=== PATIENT | male | born 1950 | race Caucasian/White ===

== ENCOUNTER 2017-05-20 07:14 | Outpatient (CLI) | payer MEDICARE ==
[~2017-05-20] VITALS: Ht 182.9 cm; Wt 83.9 kg
[~2017-05-20 07:14] MED LIST: ALLE180T33 PO; ASPI1TAB PO; CENTTAB PO; GINK40TA3 PO; LOSA50TA20 PO; POTA75TA2 PO; POTA80TA PO; SLOWTAB2 PO; VITA500C24 PO
[2017-05-20] MEDS ORDERED: LIDOCAINE 2% INJ 100 MG/5 ML SDV (FOR ANES.) As Ordered ONE (08:48)
[2017-05-20] MEDS ORDERED: PROPOFOL 200 MG/20 ML VIAL As Ordered ONE (08:48)
[2017-05-20 09:25] VITALS: BP 126/78
--- NOTE | 2017-05-20 09:31 | ROOR ---
Patient Name: Grayson Pickens Procedure Date: 05/20/2017 8:40 AM Date of : 1950 Age: 66 Room: [facility] Gender: Male Note Status: Finalized Procedure: Colonoscopy Indications: Screening for colorectal malignant neoplasm Providers: Froylan Holt MD Referring MD: Lucian Mars MD Requesting Provider: Medicines: Monitored Anesthesia Care Complications: No immediate complications. Procedure: Pre-Anesthesia Assessment: - Prior to the procedure, a History and Physical was performed, and patient medications and allergies were reviewed. The patient is competent. The risks and benefits of the procedure and the sedation options and risks were discussed with the patient. All questions were answered and informed consent was obtained. Patient identification and proposed procedure were verified by the physician, the nurse and the vendor analyst in the procedure room. Mental Status Examination: alert and oriented. Airway Examination: normal oropharyngeal airway and neck mobility. Respiratory Examination: clear to auscultation. CV Examination: normal. Prophylactic Antibiotics: The patient does not require prophylactic antibiotics. Prior Anticoagulants: The patient has taken no previous anticoagulant or antiplatelet agents. ASA Grade Assessment: III - A patient with severe systemic disease. After reviewing the risks and benefits, the patient was deemed in satisfactory condition to undergo the procedure. The anesthesia plan was to use monitored anesthesia care (MAC). Immediately prior to administration of medications, the patient was re-assessed for adequacy to receive sedatives. The heart rate, respiratory rate, oxygen saturations, blood pressure, adequacy of pulmonary ventilation, and response to care were monitored throughout the procedure. The physical status of the patient was re-assessed after the procedure. The Colonoscope was introduced through the anus and advanced to the terminal ileum, with identification of the appendiceal orifice and IC valve. The colonoscopy was performed without difficulty. The patient tolerated the procedure well. The quality of the bowel preparation was good. The terminal ileum, ileocecal valve, appendiceal orifice, and rectum were photographed. The quality of the bowel preparation was good. The terminal ileum, ileocecal valve, appendiceal orifice, and rectum were photographed. Scope insertion time was 5 minutes. Scope withdrawal time was 10 minutes. The total duration of the procedure was 18 minutes. Findings: The perianal and digital rectal examinations were normal. The terminal ileum contained a few small diverticula. Two sessile polyps were found in the rectum. The polyps were 2 to 3 mm in size. These polyps were removed with a jumbo cold forceps. Resection and retrieval were complete. Verification of patient identification for the specimen was done by the physician and nurse using the patient's name, date and medical record number. Estimated blood loss was minimal. Multiple small and large-mouthed diverticula were found from sigmoid to cecum. There was no evidence of diverticular bleeding. Non-bleeding external and internal hemorrhoids were found during retroflexion. The hemorrhoids were large. Impression: - Ileal diverticula. - Two 2 to 3 mm polyps in the rectum, removed with a jumbo cold forceps. Resected and retrieved. - Severe diverticulosis from sigmoid to cecum. There was no evidence of diverticular bleeding. - Non-bleeding external and internal hemorrhoids. Recommendation: - Patient has a contact number available for emergencies. The signs and symptoms of potential delayed complications were discussed with the patient. Return to normal activities tomorrow. Written discharge instructions were provided to the patient. - High fiber diet. - Continue present medications. - Preparation H ointment: Apply externally daily for 7 days. - Await pathology results. - Repeat colonoscopy in 5 years for surveillance based on pathology results. - Return to GI office as previously scheduled on 05/26/2017 at 10:00 AM. - Return to primary care physician. Froylan Holt MD Froylan Holt MD 05/20/2017 9:31:48 AM This report has been signed electronically. Number of Addenda: 0 Note Initiated On: 05/20/2017 8:40 AM Estimated Blood Loss: Estimated blood loss was minimal.
== END 2017-05-20 09:40 | disposition home or self-care (01) ==
LOC: M OPP 07:14
PROVIDERS: ATTEND Internal Medicine Gastroenterology
DX: Z12.11 Encounter for screening for malignant neoplasm of colon (principal); K63.5 Polyp of colon; K57.30 Diverticulosis of large intestine without perforation or abscess without bleeding; K64.8 Other hemorrhoids; K64.4 Residual hemorrhoidal skin tags; I10 Essential (primary) hypertension; M54.31 Sciatica, right side; Z85.828 Personal history of other malignant neoplasm of skin; Z79.82 Long term (current) use of aspirin; Z79.899 Other long term (current) drug therapy

== ENCOUNTER → 2017-07-04 | Outpatient (REF) | payer MEDICARE ==
[2017-07-04 17:34] LABS: ANION GAP 13 MEQ/L (8-16); BLOOD UREA NITROGEN 10 MG/DL (7-18); CARBON DIOXIDE LEVEL 26 MEQ/L (21-32); CHLORIDE LEVEL 102 MEQ/L (98-107); CREATININE FOR GFR 0.94 MG/DL (0.70-1.30); GLOMERULAR FILTRATION RATE > 60.0 (>49); GLUCOSE, FASTING 76 MG/DL (80-110); MAGNESIUM LEVEL 1.9 MG/DL (1.8-2.4); POTASSIUM SERUM 4.2 MEQ/L (3.5-5.1); SODIUM LEVEL 141 MEQ/L (136-145)
[2017-07-04 17:37] LABS: FOLATE 13.6 NG/ML; VITAMIN B12 LEVEL 314 PG/ML
== END ==
LOC: M SFHCCLAY 13:23
PROVIDERS: ATTEND Family Medicine
DX: G58.7 Mononeuritis multiplex (principal)

== ENCOUNTER 2019-03-27 17:27 | Emergency (ER) | payer MEDICARE ==
[~2019-03-27] VITALS: Ht 182.9 cm; Wt 84.1 kg
[~2019-03-27 17:27] MED LIST changes: -ASPI1TAB PO; +ASPI81TA26 PO; -LOSA50TA20 PO; +LOSA50TA88 PO
[2019-03-27] MEDS ORDERED: NS 1,000 ML IV SCH (18:16)
[2019-03-27 18:24] LABS: HEMATOCRIT 44.1 % (42.0-52.0); HEMOGLOBIN 15.3 g/dl (13.5-17.5); MEAN CORPUSCULAR HEMOGLOBIN 34.5 pg (27.0-33.0); MEAN CORPUSCULAR HGB CONC 34.7 g/dl (32.0-36.5); MEAN CORPUSCULAR VOLUME 99.5 fl (80.0-96.0); PLATELET COUNT, AUTOMATED 198 10^3/uL (150-450); RED BLOOD COUNT 4.43 10^6/uL (4.30-6.10); WHITE BLOOD COUNT 5.5 10^3/uL (4.0-10.0)
[2019-03-27 18:59] LABS: AMPHETAMINES LEVEL URINE NEGATIVE (NEGATIVE); BARBITURATES URINE NEGATIVE (NEGATIVE); BENZODIAZEPINES URINE NEGATIVE (NEGATIVE); CANNABINOIDS URINE NEGATIVE (NEGATIVE); COCAINE METABOLITE URINE NEGATIVE (NEGATIVE); METHADONE URINE NEGATIVE (NEGATIVE); OPIATES URINE NEGATIVE (NEGATIVE); PHENCYCLIDINE URINE NEGATIVE (NEGATIVE)
[2019-03-27 19:07] LABS: ACETAMINOPHEN LEVEL < 2.0 UG/ML (10.0-30.0); ALBUMIN 3.9 GM/DL (3.2-5.2); ALT/SGPT 23 U/L (12-78); BILIRUBIN,DIRECT 0.2 MG/DL (0.0-0.2); BILIRUBIN,TOTAL 0.5 MG/DL (0.2-1.0); BLOOD UREA NITROGEN 8 MG/DL (7-18); CALCIUM LEVEL 8.4 MG/DL (8.8-10.2); CARBON DIOXIDE LEVEL 30 MEQ/L (21-32); CHLORIDE LEVEL 107 MEQ/L (98-107); ETHYL ALCOHOL (ETHANOL) 0.348 % (0.000-0.010); GLOMERULAR FILTRATION RATE > 60.0 (>49); GLUCOSE, FASTING 98 MG/DL (70-100); POTASSIUM SERUM 3.4 MEQ/L (3.5-5.1); SALICYLATE LEVEL < 1.7 MG/DL (5.0-30.0); SODIUM LEVEL 144 MEQ/L (136-145); TOTAL PROTEIN 6.7 GM/DL (6.4-8.2)
[2019-03-27 22:03] VITALS: BP 123/77
== END 2019-03-27 22:12 | disposition home or self-care (01) ==
LOC: EDBD 17:27 → M ED 17:27
DX: F10.120 Alcohol abuse with intoxication, uncomplicated (principal); R41.82 Altered mental status, unspecified; I10 Essential (primary) hypertension; J30.89 Other allergic rhinitis; M54.30 Sciatica, unspecified side; Z85.828 Personal history of other malignant neoplasm of skin; Z79.899 Other long term (current) drug therapy; Z79.82 Long term (current) use of aspirin
CPT/HCPCS: 80048; 80076; 80307; 84443; 85027; 93041; 94760; 96360; 96361; 99285; G0480

== ENCOUNTER → 2019-06-01 | Outpatient (REF) | payer MEDICARE ==
[2019-06-01 16:40] LABS: ALBUMIN 4.2 GM/DL (3.2-5.2); ALT/SGPT 18 U/L (12-78); BILIRUBIN,TOTAL 0.8 MG/DL (0.2-1.0); BLOOD UREA NITROGEN 8 MG/DL (7-18); CALCIUM LEVEL 9.1 MG/DL (8.8-10.2); CARBON DIOXIDE LEVEL 29 MEQ/L (21-32); CHLORIDE LEVEL 106 MEQ/L (98-107); CHOLESTEROL LEVEL 204 MG/DL (<200); CHOLESTEROL RISK RATIO 2.956 (<5); CREATININE FOR GFR 1.06 MG/DL (0.70-1.30); GLOMERULAR FILTRATION RATE > 60.0 (>49); GLUCOSE, FASTING 88 MG/DL (70-100); HDL CHOLESTEROL 69 MG/DL (>40); LDL CHOLESTEROL 97 MG/DL (<100); NON-HDL-C 135 MG/DL; POTASSIUM SERUM 4.2 MEQ/L (3.5-5.1); SODIUM LEVEL 144 MEQ/L (136-145); TOTAL PROTEIN 7.3 GM/DL (6.4-8.2); TRIGLYCERIDES LEVEL 192 MG/DL (<150)
== END ==
LOC: M SFHCCLAY 12:13
PROVIDERS: ATTEND Family Medicine
DX: I10 Essential (primary) hypertension (principal); E78.00 Pure hypercholesterolemia, unspecified; Z12.5 Encounter for screening for malignant neoplasm of prostate
CPT/HCPCS: 80053; 80061; 90682; G0008; G0103

== ENCOUNTER → 2020-06-05 | Outpatient (REF) | payer MEDICARE ==
[2020-06-06 12:36] LABS: BLOOD UREA NITROGEN 16 MG/DL (7-18); CALCIUM LEVEL 9.2 MG/DL (8.8-10.2); CARBON DIOXIDE LEVEL 28 MEQ/L (21-32); CHLORIDE LEVEL 104 MEQ/L (98-107); CREATININE FOR GFR 0.88 MG/DL (0.70-1.30); GLOMERULAR FILTRATION RATE > 60.0 (>49); GLUCOSE, FASTING 94 MG/DL (70-100); POTASSIUM SERUM 4.6 MEQ/L (3.5-5.1); SODIUM LEVEL 142 MEQ/L (136-145)
== END ==
LOC: M SFHCCLAY 14:48
PROVIDERS: ATTEND Family Medicine
DX: I11.9 Hypertensive heart disease without heart failure (principal); R97.20 Elevated prostate specific antigen [PSA]; Z23 Encounter for immunization
CPT/HCPCS: 80048; 90682; G0008; G0103; G0463

== ENCOUNTER 2020-07-24 15:56 | Emergency (ER) | payer MEDICARE ==
[~2020-07-24] VITALS: Ht 182.9 cm; Wt 77.3 kg
[2020-07-24] MEDS ORDERED: NS 500 ML IV ONE (16:45)
--- NOTE | 2020-07-24 16:49 | REP ---
INDICATION: weakness. COMPARISON: Comparison head CT study February 13, 2016.. TECHNIQUE: Helical scanning is acquired. 5 mm axial images were reformatted. Coronal MPR images were generated. FINDINGS: Bone window settings demonstrate an intact bony calvarium. There is no evidence of skull fracture or incidental bony calvarial lesion. The visualized paranasal sinuses appear clear. No intraorbital abnormality is seen. On soft tissue window setting images; the lateral, third, and fourth ventricles are normal in size and position. Chou-white differentiation pattern is normal above and below the tentorium. There are is no evidence of intracranial hemorrhage. No mass, edema, infarction, or midline shift is seen. No extra-axial fluid collection is appreciated. There is mild generalized volume loss. No change from comparison study. IMPRESSION: Mild generalized volume loss. Otherwise unremarkable head CT. No acute intracranial abnormality.. <Electronically signed by Ulises Levi > 07/24/20 [id number]
[2020-07-24 17:35] LABS: BASO % 0.3 % (0.0-1.0); HEMATOCRIT 38.4 % (42.0-52.0); HEMOGLOBIN 12.8 g/dl (13.5-17.5); LYMPH # 0.5 10^3/uL (1.5-5.0); MEAN CORPUSCULAR HEMOGLOBIN 36.1 pg (27.0-33.0); MEAN CORPUSCULAR HGB CONC 33.3 g/dl (32.0-36.5); MEAN CORPUSCULAR VOLUME 108.2 fl (80.0-96.0); MONO # 0.7 10^3/uL (0.0-0.8); MONO % 10.9 % (0.0-5.0); NEUTROPHILS % 80.5 % (36.0-66.0); PLATELET COUNT, AUTOMATED 117 10^3/uL (150-450); RED BLOOD COUNT 3.55 10^6/uL (4.30-6.10); WHITE BLOOD COUNT 6.2 10^3/uL (4.0-10.0)
--- NOTE | 2020-07-24 17:50 | REP ---
INDICATION: weakness. COMPARISON: Comparison chest x-ray February 13, 2016. Also reviewed is a chest x-ray from January 15, 2016. TECHNIQUE: Two views.. FINDINGS: The lungs are well inflated and free of infiltrate. The pleural angles are sharp. The heart size is normal. Pulmonary vasculature is not increased. No significant bony abnormality is seen. There is a hiatal hernia noted behind the heart mild to moderate in size. IMPRESSION: Hiatal hernia, otherwise no active disease.. <Electronically signed by Ulises Levi > 07/24/20 [id number]
[2020-07-24 18:07] LABS: ALBUMIN 3.8 GM/DL (3.2-5.2); ALT/SGPT 53 U/L (12-78); BILIRUBIN,DIRECT 0.9 MG/DL (0.0-0.2); BILIRUBIN,TOTAL 2.1 MG/DL (0.2-1.0); BLOOD UREA NITROGEN 15 MG/DL (7-18); CALCIUM LEVEL 8.8 MG/DL (8.8-10.2); CARBON DIOXIDE LEVEL 30 MEQ/L (21-32); CHLORIDE LEVEL 99 MEQ/L (98-107); CK-MB VALUE MASS 4.4 NG/ML (<3.6); CPK CREATINE PHOSPHOKINASE 195 U/L (39-308); CREATININE FOR GFR 1.29 MG/DL (0.70-1.30); GLOMERULAR FILTRATION RATE 58.8 (>49); GLUCOSE, FASTING 81 MG/DL (70-100); LIPASE 65 U/L (73-393); MB/CK RELATIVE INDEX 2.26 (< OR =4); POTASSIUM SERUM 3.6 MEQ/L (3.5-5.1); SODIUM LEVEL 139 MEQ/L (136-145); TOTAL PROTEIN 6.9 GM/DL (6.4-8.2); TROPONIN I < 0.02 NG/ML (< 0.10)
[2020-07-24 18:30] VITALS: BP 168/89
--- NOTE | 2020-07-25 07:17 | ECGEPIP ---
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
== END 2020-07-24 18:57 | disposition home or self-care (01) ==
LOC: M ED 15:56
DX: R53.83 Other fatigue (principal); R11.10 Vomiting, unspecified; K44.9 Diaphragmatic hernia without obstruction or gangrene; I10 Essential (primary) hypertension; M54.30 Sciatica, unspecified side; Z85.828 Personal history of other malignant neoplasm of skin; Z79.82 Long term (current) use of aspirin; Z79.899 Other long term (current) drug therapy
CPT/HCPCS: 70450; 71046; 80048; 80076; 82550; 82553; 82948; 83690; 84484; 85025; 93005; 93041; 96360; 99284; G0463

== ENCOUNTER → 2020-10-21 | Outpatient (REF) | payer MEDICARE | LOC: M LAB REF 16:16 | PROVIDERS: ATTEND Surgery | DX: M86.171 Other acute osteomyelitis, right ankle and foot (principal); L97.514 Non-pressure chronic ulcer of other part of right foot with necrosis of bone; T14.8XXA Other injury of unspecified body region, initial encounter | CPT/HCPCS: 11042; 11043; 11044; 87070; 87077; 87186; 88304; G0463 ==

== ENCOUNTER → 2021-07-20 | Outpatient (REF) | payer MEDICARE ==
[~2021-07-20] MED LIST changes: +LOSA50TA28 PO; -LOSA50TA88 PO
[2021-07-20 16:26] LABS: BASO # 0.2 10^3/uL (0.0-0.2); BASO % 1.9 % (0.0-1.0); EOS # 0.4 10^3/uL (0.0-0.5); HEMATOCRIT 37.3 % (42.0-52.0); HEMOGLOBIN 12.4 g/dl (13.5-17.5); LYMPH # 3.4 10^3/uL (1.5-5.0); LYMPH % 35.3 % (24.0-44.0); MEAN CORPUSCULAR HEMOGLOBIN 32.9 pg (27.0-33.0); MEAN CORPUSCULAR HGB CONC 33.2 g/dl (32.0-36.5); MEAN CORPUSCULAR VOLUME 98.9 fl (80.0-96.0); MONO % 10.6 % (2.0-8.0); NEUTROPHILS # 4.6 10^3/uL (1.5-8.5); PLATELET COUNT, AUTOMATED 325 10^3/uL (150-450); RED BLOOD COUNT 3.77 10^6/uL (4.30-6.10); WHITE BLOOD COUNT 9.7 10^3/uL (4.0-10.0)
[2021-07-20 19:42] LABS: ALBUMIN 2.5 GM/DL (3.2-5.2); ALT/SGPT 16 U/L (12-78); BILIRUBIN,TOTAL 0.6 MG/DL (0.2-1.0); BLOOD UREA NITROGEN 7 MG/DL (7-18); CALCIUM LEVEL 8.3 MG/DL (8.8-10.2); CARBON DIOXIDE LEVEL 31 MEQ/L (21-32); CHLORIDE LEVEL 101 MEQ/L (98-107); CHOLESTEROL LEVEL 130 MG/DL (<200); CREATININE FOR GFR 0.99 MG/DL (0.70-1.30); GLOMERULAR FILTRATION RATE > 60.0 (>42); GLUCOSE, FASTING 80 MG/DL (70-100); HDL CHOLESTEROL 57 MG/DL (>40); LDL CHOLESTEROL 52 MG/DL (<100); NON-HDL-C 73 MG/DL; POTASSIUM SERUM 3.4 MEQ/L (3.5-5.1); SODIUM LEVEL 142 MEQ/L (136-145); TOTAL 25(OH) VITAMIN D 15.5 NG/ML (30.0-100.0); TOTAL PROTEIN 6.8 GM/DL (6.4-8.2); TRIGLYCERIDES LEVEL 104 MG/DL (<150)
== END ==
LOC: M SFHCCAPE 10:58
PROVIDERS: ATTEND Physician Assistant
DX: I10 Essential (primary) hypertension (principal); Z12.5 Encounter for screening for malignant neoplasm of prostate; Z79.899 Other long term (current) drug therapy
CPT/HCPCS: 36415; 80053; 80061; 82306; 84443; 85025; G0103

== ENCOUNTER 2021-08-29 19:28 | Inpatient (IN) | payer MEDICARE ==
[~2021-08-29] VITALS: Ht 182.9 cm; Wt 71.0 kg
[2021-08-29 20:27] LABS: BASO # 0.1 10^3/uL (0.0-0.2); BASO % 0.5 % (0.0-1.0); EOS % 0.1 % (0.0-3.0); HEMATOCRIT 29.2 % (42.0-52.0); HEMOGLOBIN 10.2 g/dl (13.5-17.5); LYMPH # 0.7 10^3/uL (1.5-5.0); LYMPH % 5.7 % (24.0-44.0); MEAN CORPUSCULAR HEMOGLOBIN 31.8 pg (27.0-33.0); MEAN CORPUSCULAR HGB CONC 34.9 g/dl (32.0-36.5); MONO # 1.2 10^3/uL (0.0-0.8); MONO % 9.4 % (2.0-8.0); NEUTROPHILS # 10.6 10^3/uL (1.5-8.5); NEUTROPHILS % 83.9 % (36.0-66.0); PLATELET COUNT, AUTOMATED 241 10^3/uL (150-450); RED BLOOD COUNT 3.21 10^6/uL (4.30-6.10); WHITE BLOOD COUNT 12.6 10^3/uL (4.0-10.0)
[2021-08-29 20:51] LABS: BLOOD UREA NITROGEN 11 MG/DL (7-18); CALCIUM LEVEL 7.8 MG/DL (8.8-10.2); CARBON DIOXIDE LEVEL 34 MEQ/L (21-32); CHLORIDE LEVEL 94 MEQ/L (98-107); CREATININE FOR GFR 1.05 MG/DL (0.70-1.30); GLOMERULAR FILTRATION RATE > 60.0 (>42); GLUCOSE, FASTING 101 MG/DL (70-100); MAGNESIUM LEVEL 1.1 MG/DL (1.8-2.4); POTASSIUM SERUM 2.9 MEQ/L (3.5-5.1); SODIUM LEVEL 135 MEQ/L (136-145)
[2021-08-29] MEDS ORDERED: ACETAMINOPHEN TAB 650MG DOSE (2X325MG) PO ONE (20:55)
[2021-08-29] MEDS ORDERED: POTASSIUM CHLORIDE 10MEQ SR TABLET PO ONE (20:55)
[2021-08-29] MEDS ORDERED: OXAZEPAM 15 MG CAP PO ONE (20:55)
[2021-08-29] MEDS ORDERED: MAG SULF 1GM/100ML (MAG RUN) 1 GM in IV 1 EA IV ONE (20:55)
[2021-08-29] MEDS ORDERED: NS 1,000 ML IV ONE ×2 (20:55→23:45)
[2021-08-29] MEDS ORDERED: cefTRIAXone SOD 1 GM in D5W MINI-BAG PLUS 50 ML IV ONE (23:10)
[2021-08-29] MEDS ORDERED: GINK60CA8 PO (23:40)
[2021-08-29] MEDS ORDERED: CENT1TAB PO (23:40)
[2021-08-29] MEDS ORDERED: MAGN200T10 PO (23:40)
[2021-08-29] MEDS ORDERED: MED REC COMMENT (23:42)
[2021-08-29] MEDS ORDERED: HOME MED LIST COMPLETE! XX SCH (23:45)
[2021-08-29] MEDS: NS 1,000 ML IV SCH (23:45)
[2021-08-30] MEDS ORDERED: THIAMINE 200MG 2ML VIAL IM ONE (00:30)
[2021-08-30] MEDS: NS 1,000 ML IV SCH ×3 (00:42→19:41)
[2021-08-30] MEDS: KCL 10MEQ/100ML SWI (KRUN) 10 MEQ in IV 1 EA IV SCH ×2 (01:00→02:00)
[2021-08-30 01:10] VITALS: BP 143/82
[2021-08-30 04:00] VITALS: BP 134/82
[2021-08-30] MEDS ORDERED: LORazepam 2 MG TAB XX PRN (05:10)
[2021-08-30] MEDS ORDERED: HALOPERIDOL 5MG/ML VIAL (J1630 PER 1) IM ONE (05:15)
[2021-08-30] MEDS ORDERED: diazePAM 10MG/2ML SYRINGE (J3360 PER 5MG) IM ONE (05:15)
[2021-08-30] MEDS: HEPARIN SOD (PORCINE) 5000UNITS/ML 1ML VIAL/SYRINGE SC SCH ×3 (05:44→21:52)
[2021-08-30 07:29] LABS: BLOOD UREA NITROGEN 12 MG/DL (7-18); CALCIUM LEVEL 6.9 MG/DL (8.8-10.2); CARBON DIOXIDE LEVEL 30 MEQ/L (21-32); CHLORIDE LEVEL 102 MEQ/L (98-107); CREATININE FOR GFR 0.86 MG/DL (0.70-1.30); GLOMERULAR FILTRATION RATE > 60.0 (>42); GLUCOSE, FASTING 77 MG/DL (70-100); MAGNESIUM LEVEL 1.4 MG/DL (1.8-2.4); PHOSPHORUS LEVEL 3.5 MG/DL (2.5-4.9); POTASSIUM SERUM 2.9 MEQ/L (3.5-5.1); SODIUM LEVEL 140 MEQ/L (136-145)
[2021-08-30 07:52] VITALS: BP 138/83
[2021-08-30] MEDS: MULTIVITAMINS/MINERALS THERAP 1 TAB PO SCH (09:03)
[2021-08-30] MEDS: FOLIC ACID 1 MG TAB PO SCH (09:03)
[2021-08-30] MEDS: MAG SULF 1GM/100ML (MAG RUN) 1 GM in IV 1 EA IV SCH ×2 (09:03→10:48)
[2021-08-30 16:00] VITALS: BP 126/78
[2021-08-30] MEDS: ACETAMINOPHEN TAB 650MG DOSE (2X325MG) PO PRN (17:25)
[2021-08-30] MEDS ORDERED: LORazepam 2 MG/ML VIAL IV PRN (17:40)
[2021-08-30 20:00] VITALS: BP 133/93
[2021-08-30 22:00] VITALS: BP 133/93
[2021-08-30] MEDS: cefTRIAXone SOD 1 GM in D5W MINI-BAG PLUS 50 ML IV SCH (23:33)
[2021-08-31] VITALS (7 sets, daily range): BP systolic 92–138; BP diastolic 56–91
[2021-08-31] MEDS: NS 1,000 ML IV SCH ×2 (05:42→15:45)
[2021-08-31] MEDS: HEPARIN SOD (PORCINE) 5000UNITS/ML 1ML VIAL/SYRINGE SC SCH ×3 (05:43→21:03)
[2021-08-31] MEDS: FOLIC ACID 1 MG TAB PO SCH (08:50)
[2021-08-31] MEDS: MULTIVITAMINS/MINERALS THERAP 1 TAB PO SCH (08:50)
[2021-08-31 09:24] LABS: BASO # 0.1 10^3/uL (0.0-0.2); EOS # 0.1 10^3/uL (0.0-0.5); EOS % 1.1 % (0.0-3.0); HEMATOCRIT 26.6 % (42.0-52.0); HEMOGLOBIN 8.9 g/dl (13.5-17.5); LYMPH # 1.1 10^3/uL (1.5-5.0); LYMPH % 10.2 % (24.0-44.0); MEAN CORPUSCULAR HEMOGLOBIN 31.6 pg (27.0-33.0); MEAN CORPUSCULAR HGB CONC 33.5 g/dl (32.0-36.5); MEAN CORPUSCULAR VOLUME 94.3 fl (80.0-96.0); MONO # 0.8 10^3/uL (0.0-0.8); MONO % 7.9 % (2.0-8.0); NEUTROPHILS # 8.2 10^3/uL (1.5-8.5); NEUTROPHILS % 79.3 % (36.0-66.0); PLATELET COUNT, AUTOMATED 222 10^3/uL (150-450); RED BLOOD COUNT 2.82 10^6/uL (4.30-6.10); WHITE BLOOD COUNT 10.4 10^3/uL (4.0-10.0)
[2021-08-31 09:56] LABS: BLOOD UREA NITROGEN 10 MG/DL (7-18); CALCIUM LEVEL 7.3 MG/DL (8.8-10.2); CARBON DIOXIDE LEVEL 30 MEQ/L (21-32); CHLORIDE LEVEL 100 MEQ/L (98-107); CREATININE FOR GFR 1.01 MG/DL (0.70-1.30); GLOMERULAR FILTRATION RATE > 60.0 (>42); GLUCOSE, FASTING 133 MG/DL (70-100); POTASSIUM SERUM 3.2 MEQ/L (3.5-5.1); SODIUM LEVEL 135 MEQ/L (136-145)
[2021-08-31] MEDS ORDERED: POTASSIUM CHLORIDE 10MEQ SR TABLET PO ONE (15:40)
[2021-08-31] MEDS: LIDOCAINE 5% (LIDODERM) PATCH TD SCH (18:13)
[2021-08-31] MEDS: **NOTE PATIENT COMMENT** MISC XX SCH (21:02)
[2021-08-31] MEDS: cefTRIAXone SOD 1 GM in D5W MINI-BAG PLUS 50 ML IV SCH (23:30)
[2021-09-01] MEDS: NS 1,000 ML IV SCH ×2 (04:19→12:26)
[2021-09-01] MEDS: HEPARIN SOD (PORCINE) 5000UNITS/ML 1ML VIAL/SYRINGE SC SCH ×3 (05:16→22:03)
[2021-09-01 06:00] VITALS: BP 117/78
[2021-09-01] MEDS ORDERED: POTASSIUM CHLORIDE 10MEQ SR TABLET PO ONE (08:30)
[2021-09-01] MEDS: MULTIVITAMINS/MINERALS THERAP 1 TAB PO SCH (08:44)
[2021-09-01] MEDS: FOLIC ACID 1 MG TAB PO SCH (08:44)
[2021-09-01] MEDS: LIDOCAINE 5% (LIDODERM) PATCH TD SCH (08:45)
[2021-09-01 12:13] LABS: MAGNESIUM LEVEL 1.6 MG/DL (1.8-2.4)
[2021-09-01 12:25] LABS: BLOOD UREA NITROGEN 10 MG/DL (7-18); CALCIUM LEVEL 7.6 MG/DL (8.8-10.2); CARBON DIOXIDE LEVEL 28 MEQ/L (21-32); CHLORIDE LEVEL 102 MEQ/L (98-107); CREATININE FOR GFR 0.96 MG/DL (0.70-1.30); GLOMERULAR FILTRATION RATE > 60.0 (>42); GLUCOSE, FASTING 102 MG/DL (70-100); POTASSIUM SERUM 3.4 MEQ/L (3.5-5.1); SODIUM LEVEL 136 MEQ/L (136-145)
[2021-09-01 12:27] LABS: HEMATOCRIT 25.7 % (42.0-52.0); HEMOGLOBIN 8.6 g/dl (13.5-17.5); MEAN CORPUSCULAR HEMOGLOBIN 31.6 pg (27.0-33.0); MEAN CORPUSCULAR HGB CONC 33.5 g/dl (32.0-36.5); MEAN CORPUSCULAR VOLUME 94.5 fl (80.0-96.0); PLATELET COUNT, AUTOMATED 202 10^3/uL (150-450); RED BLOOD COUNT 2.72 10^6/uL (4.30-6.10); WHITE BLOOD COUNT 7.5 10^3/uL (4.0-10.0)
[2021-09-01] MEDS: MAG SULF 1GM/100ML (MAG RUN) 1 GM in IV 1 EA IV SCH ×2 (13:01→14:31)
[2021-09-01 14:00] VITALS: BP 121/80
[2021-09-01] MEDS: ACETAMINOPHEN TAB 650MG DOSE (2X325MG) PO PRN (20:26)
[2021-09-01 21:07] VITALS: BP 131/87
[2021-09-01] MEDS: **NOTE PATIENT COMMENT** MISC XX SCH (21:21)
[2021-09-01] MEDS: cefTRIAXone SOD 1 GM in D5W MINI-BAG PLUS 50 ML IV SCH (22:03)
[2021-09-02] MEDS: IBUPROFEN 200MG TAB PO PRN ×2 (02:17→22:14)
[2021-09-02] MEDS: NS 1,000 ML IV SCH (02:18)
[2021-09-02] MEDS: HEPARIN SOD (PORCINE) 5000UNITS/ML 1ML VIAL/SYRINGE SC SCH ×3 (05:07→22:13)
[2021-09-02 05:28] VITALS: BP 132/86
[2021-09-02 06:02] LABS: BASO # 0.1 10^3/uL (0.0-0.2); BASO % 0.9 % (0.0-1.0); EOS # 0.2 10^3/uL (0.0-0.5); EOS % 2.4 % (0.0-3.0); HEMATOCRIT 23.1 % (42.0-52.0); HEMOGLOBIN 7.8 g/dl (13.5-17.5); LYMPH # 1.2 10^3/uL (1.5-5.0); LYMPH % 15.3 % (24.0-44.0); MEAN CORPUSCULAR HEMOGLOBIN 31.7 pg (27.0-33.0); MEAN CORPUSCULAR HGB CONC 33.8 g/dl (32.0-36.5); MEAN CORPUSCULAR VOLUME 93.9 fl (80.0-96.0); MONO % 12.3 % (2.0-8.0); NEUTROPHILS # 5.6 10^3/uL (1.5-8.5); NEUTROPHILS % 68.7 % (36.0-66.0); PLATELET COUNT, AUTOMATED 200 10^3/uL (150-450); RED BLOOD COUNT 2.46 10^6/uL (4.30-6.10); WHITE BLOOD COUNT 8.1 10^3/uL (4.0-10.0)
[2021-09-02 06:28] LABS: ALBUMIN 1.6 GM/DL (3.2-5.2); ALT/SGPT 19 U/L (12-78); BILIRUBIN,TOTAL 0.3 MG/DL (0.2-1.0); BLOOD UREA NITROGEN 9 MG/DL (7-18); CALCIUM LEVEL 7.3 MG/DL (8.8-10.2); CARBON DIOXIDE LEVEL 26 MEQ/L (21-32); CHLORIDE LEVEL 106 MEQ/L (98-107); CREATININE FOR GFR 0.89 MG/DL (0.70-1.30); GLOMERULAR FILTRATION RATE > 60.0 (>42); GLUCOSE, FASTING 79 MG/DL (70-100); POTASSIUM SERUM 3.6 MEQ/L (3.5-5.1); SODIUM LEVEL 140 MEQ/L (136-145)
[2021-09-02 08:24] LABS: HEMATOCRIT 23.9 % (42.0-52.0); HEMOGLOBIN 8.2 g/dl (13.5-17.5)
[2021-09-02] MEDS: MULTIVITAMINS/MINERALS THERAP 1 TAB PO SCH (09:28)
[2021-09-02] MEDS: FOLIC ACID 1 MG TAB PO SCH (09:28)
[2021-09-02] MEDS: THIAMINE 100 MG TAB PO SCH (09:28)
[2021-09-02] MEDS: LIDOCAINE 5% (LIDODERM) PATCH TD SCH (09:29)
[2021-09-02 14:00] VITALS: BP 146/86
[2021-09-02] MEDS: **NOTE PATIENT COMMENT** MISC XX SCH (21:00)
[2021-09-02 22:00] VITALS: BP 141/92
[2021-09-02] MEDS: cefTRIAXone SOD 1 GM in D5W MINI-BAG PLUS 50 ML IV SCH (22:13)
[2021-09-03] VITALS (8 sets, daily range): BP systolic 119–142; BP diastolic 80–88
[2021-09-03] MEDS: HEPARIN SOD (PORCINE) 5000UNITS/ML 1ML VIAL/SYRINGE SC SCH (05:44)
[2021-09-03 06:38] LABS: HEMATOCRIT 23.9 % (42.0-52.0); MEAN CORPUSCULAR HEMOGLOBIN 31.4 pg (27.0-33.0); MEAN CORPUSCULAR HGB CONC 33.5 g/dl (32.0-36.5); MEAN CORPUSCULAR VOLUME 93.7 fl (80.0-96.0); PLATELET COUNT, AUTOMATED 226 10^3/uL (150-450); RED BLOOD COUNT 2.55 10^6/uL (4.30-6.10); WHITE BLOOD COUNT 5.9 10^3/uL (4.0-10.0)
[2021-09-03 07:01] LABS: BLOOD UREA NITROGEN 8 MG/DL (7-18); CARBON DIOXIDE LEVEL 30 MEQ/L (21-32); CHLORIDE LEVEL 105 MEQ/L (98-107); CREATININE FOR GFR 0.97 MG/DL (0.70-1.30); GLOMERULAR FILTRATION RATE > 60.0 (>42); GLUCOSE, FASTING 79 MG/DL (70-100); POTASSIUM SERUM 3.7 MEQ/L (3.5-5.1); SODIUM LEVEL 139 MEQ/L (136-145)
[2021-09-03] MEDS: CEFDINIR 300 MG CAP (OMNICEF) PO SCH ×2 (09:00→22:40)
[2021-09-03] MEDS: FOLIC ACID 1 MG TAB PO SCH (09:55)
[2021-09-03] MEDS: THIAMINE 100 MG TAB PO SCH (09:55)
[2021-09-03] MEDS: ACETAMINOPHEN TAB 650MG DOSE (2X325MG) PO PRN (09:56)
[2021-09-03] MEDS: LIDOCAINE 5% (LIDODERM) PATCH TD SCH (09:57)
[2021-09-03] MEDS: MULTIVITAMINS/MINERALS THERAP 1 TAB PO SCH (09:57)
[2021-09-03] MEDS: IBUPROFEN 200MG TAB PO PRN ×2 (15:31→22:41)
[2021-09-03] MEDS: **NOTE PATIENT COMMENT** MISC XX SCH (21:00)
[2021-09-04 05:31] VITALS: BP 148/95
[2021-09-04 06:16] LABS: HEMATOCRIT 25.6 % (42.0-52.0); HEMOGLOBIN 8.6 g/dl (13.5-17.5); MEAN CORPUSCULAR HEMOGLOBIN 31.4 pg (27.0-33.0); MEAN CORPUSCULAR HGB CONC 33.6 g/dl (32.0-36.5); MEAN CORPUSCULAR VOLUME 93.4 fl (80.0-96.0); PLATELET COUNT, AUTOMATED 247 10^3/uL (150-450); RED BLOOD COUNT 2.74 10^6/uL (4.30-6.10); WHITE BLOOD COUNT 4.9 10^3/uL (4.0-10.0)
[2021-09-04 06:38] LABS: BLOOD UREA NITROGEN 9 MG/DL (7-18); CALCIUM LEVEL 8.1 MG/DL (8.8-10.2); CARBON DIOXIDE LEVEL 29 MEQ/L (21-32); CHLORIDE LEVEL 104 MEQ/L (98-107); CREATININE FOR GFR 0.99 MG/DL (0.70-1.30); GLOMERULAR FILTRATION RATE > 60.0 (>42); GLUCOSE, FASTING 80 MG/DL (70-100); POTASSIUM SERUM 3.8 MEQ/L (3.5-5.1); SODIUM LEVEL 138 MEQ/L (136-145)
[2021-09-04] MEDS: MULTIVITAMINS/MINERALS THERAP 1 TAB PO SCH (09:15)
[2021-09-04] MEDS: CEFDINIR 300 MG CAP (OMNICEF) PO SCH (09:15)
[2021-09-04] MEDS: LIDOCAINE 5% (LIDODERM) PATCH TD SCH (09:15)
[2021-09-04] MEDS: THIAMINE 100 MG TAB PO SCH (09:15)
[2021-09-04] MEDS: FOLIC ACID 1 MG TAB PO SCH (09:15)
[2021-09-04] MEDS: IBUPROFEN 200MG TAB PO PRN (09:20)
[2021-09-04] MEDS ORDERED: FOLI1TAB11 PO (09:44)
[2021-09-04] MEDS ORDERED: THIA100TA PO (09:44)
[2021-09-04] MEDS ORDERED: LIDO5TD TD (09:44)
[2021-09-04] MEDS ORDERED: ADVI200T PO (09:44)
[2021-09-04] MEDS ORDERED: CEFD300CAP PO (09:44)
[2021-09-04 14:00] VITALS: BP 118/86
== END 2021-09-04 14:56 | DRG 689 ==
LOC: M ED 19:28 → M ED INP 23:17 → M PCU 08-30 01:11 → M MSPAV 08-31 23:46
PROVIDERS: ADMIT Internal Medicine; ATTEND Internal Medicine
DX: N10 Acute pyelonephritis (principal); G93.41 Metabolic encephalopathy; M62.82 Rhabdomyolysis; F10.239 Alcohol dependence with withdrawal, unspecified; E83.42 Hypomagnesemia; E87.6 Hypokalemia; B96.29 Other Escherichia coli [E. coli] as the cause of diseases classified elsewhere; I10 Essential (primary) hypertension; Z79.82 Long term (current) use of aspirin; Z79.899 Other long term (current) drug therapy; D64.9 Anemia, unspecified

== ENCOUNTER 2021-09-03 10:06 | Inpatient (IN) | payer MEDICARE ==
[~2021-09-03] VITALS: Ht 182.9 cm; Wt 70.1 kg
[~2021-09-03 10:06] MED LIST changes: +CENT1TAB PO; +GINK60CA8 PO; +MAGN200T10 PO; +MED REC COMMENT
[2021-09-04] MEDS ORDERED: FOLI1TAB11 PO (09:44)
[2021-09-04] MEDS ORDERED: ADVI200T PO (09:44)
[2021-09-04] MEDS ORDERED: THIA100TA PO (09:44)
[2021-09-04] MEDS ORDERED: LIDO5TD TD (09:44)
[2021-09-04] MEDS ORDERED: CEFD300CAP PO (09:44)
[2021-09-04 15:03] VITALS: BP 136/89
[2021-09-04] MEDS ORDERED: MIRALAX *UNIT DOSE* 17GM PACKET PO PRN (15:30)
[2021-09-04] MEDS ORDERED: HOME MED LIST COMPLETE! XX SCH (17:35)
[2021-09-04 20:45] VITALS: BP_SYST 14; BP_SYST 146; BP_DIAS 99
[2021-09-04] MEDS: LACTIC ACID 12% LOTION 225 GM BTL TOP SCH (21:16)
[2021-09-04] MEDS: PANTOPRAZOLE 40MG TAB (PROTONIX) PO SCH (21:17)
[2021-09-04] MEDS: ASPIRIN 81MG ENTERIC TABLET PO SCH (21:17)
[2021-09-04] MEDS: ACETAMINOPHEN TAB 650MG DOSE (2X325MG) PO PRN (21:17)
[2021-09-04] MEDS: FEXOFENADINE 60 MG TAB PO SCH (21:18)
[2021-09-04] MEDS: MAGNESIUM OXIDE 400MG TAB (MAG-OX) PO SCH (21:18)
[2021-09-04] MEDS: HEPARIN SOD (PORCINE) 5000UNITS/ML 1ML VIAL/SYRINGE SC SCH (21:20)
[2021-09-04] MEDS: LOSARTAN 25 MG TAB PO SCH (21:20)
[2021-09-04] MEDS: CEFDINIR 300 MG CAP (OMNICEF) PO SCH (21:20)
[2021-09-04] MEDS: LACTOBACILLUS ACIDOPHILUS CAP (BACID) PO SCH (21:21)
[2021-09-04] MEDS: **NOTE PATIENT COMMENT** MISC XX SCH (21:21)
[2021-09-04] MEDS: REMEDY PHYTOPLEX Z-GUARD PASTE 113GM TUBE (FROM STOREROOM PRODUCT) TOP SCH (21:21)
[2021-09-05 05:17] VITALS: BP 162/110
[2021-09-05 06:00] VITALS: BP 160/96
[2021-09-05 08:57] LABS: BASO # 0.1 10^3/uL (0.0-0.2); BASO % 1.8 % (0.0-1.0); EOS # 0.4 10^3/uL (0.0-0.5); EOS % 5.9 % (0.0-3.0); HEMOGLOBIN 10.2 g/dl (13.5-17.5); LYMPH % 26.6 % (24.0-44.0); MEAN CORPUSCULAR HEMOGLOBIN 31.3 pg (27.0-33.0); MEAN CORPUSCULAR HGB CONC 32.9 g/dl (32.0-36.5); MEAN CORPUSCULAR VOLUME 95.1 fl (80.0-96.0); MONO # 0.9 10^3/uL (0.0-0.8); MONO % 12.6 % (2.0-8.0); NEUTROPHILS # 3.9 10^3/uL (1.5-8.5); NEUTROPHILS % 52.8 % (36.0-66.0); PLATELET COUNT, AUTOMATED 382 10^3/uL (150-450); RED BLOOD COUNT 3.26 10^6/uL (4.30-6.10); WHITE BLOOD COUNT 7.3 10^3/uL (4.0-10.0)
[2021-09-05 09:29] LABS: ALBUMIN 2.2 GM/DL (3.2-5.2); ALT/SGPT 21 U/L (12-78); BILIRUBIN,TOTAL 0.4 MG/DL (0.2-1.0); BLOOD UREA NITROGEN 10 MG/DL (7-18); CALCIUM LEVEL 8.5 MG/DL (8.8-10.2); CARBON DIOXIDE LEVEL 30 MEQ/L (21-32); CHLORIDE LEVEL 104 MEQ/L (98-107); CREATININE FOR GFR 1.13 MG/DL (0.70-1.30); GLOMERULAR FILTRATION RATE > 60.0 (>42); GLUCOSE, FASTING 96 MG/DL (70-100); SODIUM LEVEL 140 MEQ/L (136-145); TOTAL PROTEIN 6.6 GM/DL (6.4-8.2)
[2021-09-05] MEDS: ACETAMINOPHEN TAB 650MG DOSE (2X325MG) PO PRN (09:43)
[2021-09-05] MEDS: LACTOBACILLUS ACIDOPHILUS CAP (BACID) PO SCH ×3 (09:43→20:43)
[2021-09-05] MEDS: FEXOFENADINE 60 MG TAB PO SCH (09:43)
[2021-09-05] MEDS: MAGNESIUM OXIDE 400MG TAB (MAG-OX) PO SCH (09:44)
[2021-09-05] MEDS: FOLIC ACID 1 MG TAB PO SCH (09:44)
[2021-09-05] MEDS: MULTIVITAMINS/MINERALS THERAP 1 TAB PO SCH (09:44)
[2021-09-05] MEDS: PANTOPRAZOLE 40MG TAB (PROTONIX) PO SCH (09:44)
[2021-09-05] MEDS: CEFDINIR 300 MG CAP (OMNICEF) PO SCH ×2 (09:44→20:43)
[2021-09-05] MEDS: THIAMINE 100 MG TAB PO SCH (09:44)
[2021-09-05] MEDS: ASPIRIN 81MG ENTERIC TABLET PO SCH (09:44)
[2021-09-05] MEDS: LOSARTAN 25 MG TAB PO SCH (09:45)
[2021-09-05] MEDS: HEPARIN SOD (PORCINE) 5000UNITS/ML 1ML VIAL/SYRINGE SC SCH ×2 (09:45→20:43)
[2021-09-05] MEDS: LIDOCAINE 5% (LIDODERM) PATCH TD SCH (09:46)
[2021-09-05] MEDS: REMEDY PHYTOPLEX Z-GUARD PASTE 113GM TUBE (FROM STOREROOM PRODUCT) TOP SCH ×3 (09:50→20:44)
[2021-09-05] MEDS: LACTIC ACID 12% LOTION 225 GM BTL TOP SCH ×2 (09:50→20:44)
[2021-09-05 14:00] VITALS: BP 100/67
[2021-09-05 20:00] VITALS: BP 102/74
[2021-09-05] MEDS: **NOTE PATIENT COMMENT** MISC XX SCH (20:47)
[2021-09-06 06:00] VITALS: BP 134/81
[2021-09-06] MEDS: ASPIRIN 81MG ENTERIC TABLET PO SCH (07:59)
[2021-09-06] MEDS: MAGNESIUM OXIDE 400MG TAB (MAG-OX) PO SCH (07:59)
[2021-09-06] MEDS: CEFDINIR 300 MG CAP (OMNICEF) PO SCH ×2 (07:59→21:16)
[2021-09-06] MEDS: LOSARTAN 25 MG TAB PO SCH (07:59)
[2021-09-06] MEDS: THIAMINE 100 MG TAB PO SCH (07:59)
[2021-09-06] MEDS: LACTOBACILLUS ACIDOPHILUS CAP (BACID) PO SCH ×3 (08:00→21:00)
[2021-09-06] MEDS: FEXOFENADINE 60 MG TAB PO SCH (08:00)
[2021-09-06] MEDS: MULTIVITAMINS/MINERALS THERAP 1 TAB PO SCH (08:00)
[2021-09-06] MEDS: HEPARIN SOD (PORCINE) 5000UNITS/ML 1ML VIAL/SYRINGE SC SCH ×2 (08:00→21:16)
[2021-09-06] MEDS: PANTOPRAZOLE 40MG TAB (PROTONIX) PO SCH (08:00)
[2021-09-06] MEDS: LIDOCAINE 5% (LIDODERM) PATCH TD SCH (08:00)
[2021-09-06] MEDS: LACTIC ACID 12% LOTION 225 GM BTL TOP SCH ×2 (08:00→21:17)
[2021-09-06] MEDS: FOLIC ACID 1 MG TAB PO SCH (08:00)
[2021-09-06] MEDS: REMEDY PHYTOPLEX Z-GUARD PASTE 113GM TUBE (FROM STOREROOM PRODUCT) TOP SCH ×3 (08:01→21:17)
[2021-09-06 14:00] VITALS: BP 118/78
[2021-09-06 20:00] VITALS: BP 150/67
[2021-09-06] MEDS: **NOTE PATIENT COMMENT** MISC XX SCH (21:18)
[2021-09-07 06:27] VITALS: BP 140/72
[2021-09-07] MEDS: ASPIRIN 81MG ENTERIC TABLET PO SCH (08:16)
[2021-09-07] MEDS: CEFDINIR 300 MG CAP (OMNICEF) PO SCH ×2 (08:16→20:18)
[2021-09-07] MEDS: MULTIVITAMINS/MINERALS THERAP 1 TAB PO SCH (08:16)
[2021-09-07] MEDS: LACTOBACILLUS ACIDOPHILUS CAP (BACID) PO SCH ×3 (08:16→20:18)
[2021-09-07] MEDS: THIAMINE 100 MG TAB PO SCH (08:16)
[2021-09-07] MEDS: FOLIC ACID 1 MG TAB PO SCH (08:16)
[2021-09-07] MEDS: FEXOFENADINE 60 MG TAB PO SCH (08:17)
[2021-09-07] MEDS: HEPARIN SOD (PORCINE) 5000UNITS/ML 1ML VIAL/SYRINGE SC SCH ×2 (08:17→20:18)
[2021-09-07] MEDS: PANTOPRAZOLE 40MG TAB (PROTONIX) PO SCH (08:17)
[2021-09-07] MEDS: MAGNESIUM OXIDE 400MG TAB (MAG-OX) PO SCH (08:17)
[2021-09-07] MEDS: LIDOCAINE 5% (LIDODERM) PATCH TD SCH (08:18)
[2021-09-07] MEDS: LACTIC ACID 12% LOTION 225 GM BTL TOP SCH ×2 (08:18→20:20)
[2021-09-07] MEDS: LOSARTAN 25 MG TAB PO SCH (08:19)
[2021-09-07] MEDS: REMEDY PHYTOPLEX Z-GUARD PASTE 113GM TUBE (FROM STOREROOM PRODUCT) TOP SCH ×3 (08:19→20:20)
[2021-09-07 14:00] VITALS: BP 122/84
[2021-09-07 20:13] VITALS: BP 126/72
[2021-09-07] MEDS: MAGNESIUM SULFATE GRANULES(EPSOM SALT) 1LB TOP SCH (20:19)
[2021-09-07] MEDS: **NOTE PATIENT COMMENT** MISC XX SCH (20:20)
[2021-09-08 05:34] VITALS: BP 138/86
[2021-09-08] MEDS: MULTIVITAMINS/MINERALS THERAP 1 TAB PO SCH (07:55)
[2021-09-08] MEDS: FEXOFENADINE 60 MG TAB PO SCH (07:55)
[2021-09-08] MEDS: CEFDINIR 300 MG CAP (OMNICEF) PO SCH ×2 (07:55→20:19)
[2021-09-08] MEDS: FOLIC ACID 1 MG TAB PO SCH (07:56)
[2021-09-08] MEDS: LACTOBACILLUS ACIDOPHILUS CAP (BACID) PO SCH ×3 (07:56→20:19)
[2021-09-08] MEDS: LOSARTAN 25 MG TAB PO SCH (07:56)
[2021-09-08] MEDS: PANTOPRAZOLE 40MG TAB (PROTONIX) PO SCH (07:56)
[2021-09-08] MEDS: ASPIRIN 81MG ENTERIC TABLET PO SCH (07:56)
[2021-09-08] MEDS: MAGNESIUM OXIDE 400MG TAB (MAG-OX) PO SCH (07:56)
[2021-09-08] MEDS: HEPARIN SOD (PORCINE) 5000UNITS/ML 1ML VIAL/SYRINGE SC SCH ×2 (07:57→20:20)
[2021-09-08] MEDS: THIAMINE 100 MG TAB PO SCH (07:57)
[2021-09-08] MEDS: LIDOCAINE 5% (LIDODERM) PATCH TD SCH (07:57)
[2021-09-08] MEDS: LACTIC ACID 12% LOTION 225 GM BTL TOP SCH ×2 (07:58→20:21)
[2021-09-08] MEDS: REMEDY PHYTOPLEX Z-GUARD PASTE 113GM TUBE (FROM STOREROOM PRODUCT) TOP SCH ×3 (07:58→20:20)
[2021-09-08 20:00] VITALS: BP 138/86
[2021-09-08] MEDS: oxyBUTYnin 5 MG TAB PO SCH (20:19)
[2021-09-08] MEDS: **NOTE PATIENT COMMENT** MISC XX SCH (20:20)
[2021-09-08] MEDS: MAGNESIUM SULFATE GRANULES(EPSOM SALT) 1LB TOP SCH (20:23)
[2021-09-09 06:00] VITALS: BP 150/92
[2021-09-09] MEDS: HEPARIN SOD (PORCINE) 5000UNITS/ML 1ML VIAL/SYRINGE SC SCH ×2 (08:39→20:24)
[2021-09-09] MEDS: ASPIRIN 81MG ENTERIC TABLET PO SCH (08:40)
[2021-09-09] MEDS: LACTOBACILLUS ACIDOPHILUS CAP (BACID) PO SCH ×3 (08:40→20:23)
[2021-09-09] MEDS: CEFDINIR 300 MG CAP (OMNICEF) PO SCH ×2 (08:40→20:23)
[2021-09-09] MEDS: LOSARTAN 25 MG TAB PO SCH (08:40)
[2021-09-09] MEDS: MULTIVITAMINS/MINERALS THERAP 1 TAB PO SCH (08:40)
[2021-09-09] MEDS: PANTOPRAZOLE 40MG TAB (PROTONIX) PO SCH (08:40)
[2021-09-09] MEDS: FOLIC ACID 1 MG TAB PO SCH (08:40)
[2021-09-09] MEDS: MAGNESIUM OXIDE 400MG TAB (MAG-OX) PO SCH (08:40)
[2021-09-09] MEDS: ACETAMINOPHEN TAB 650MG DOSE (2X325MG) PO PRN (08:40)
[2021-09-09] MEDS: LIDOCAINE 5% (LIDODERM) PATCH TD SCH (08:41)
[2021-09-09] MEDS: FEXOFENADINE 60 MG TAB PO SCH (08:41)
[2021-09-09] MEDS: THIAMINE 100 MG TAB PO SCH (08:41)
[2021-09-09] MEDS: oxyBUTYnin 5 MG TAB PO SCH ×2 (08:41→20:23)
[2021-09-09] MEDS: REMEDY PHYTOPLEX Z-GUARD PASTE 113GM TUBE (FROM STOREROOM PRODUCT) TOP SCH ×3 (08:46→20:26)
[2021-09-09] MEDS: LACTIC ACID 12% LOTION 225 GM BTL TOP SCH ×2 (08:47→20:25)
[2021-09-09 14:00] VITALS: BP 141/88
[2021-09-09 20:00] VITALS: BP 148/89
[2021-09-09] MEDS: IBUPROFEN 400MG TAB PO SCH (20:23)
[2021-09-09] MEDS: **NOTE PATIENT COMMENT** MISC XX SCH (20:25)
[2021-09-10 06:00] VITALS: BP 109/73
[2021-09-10] MEDS: IBUPROFEN 400MG TAB PO SCH ×3 (06:52→20:22)
[2021-09-10] MEDS: CEFDINIR 300 MG CAP (OMNICEF) PO SCH ×2 (07:52→20:21)
[2021-09-10] MEDS: ACETAMINOPHEN TAB 650MG DOSE (2X325MG) PO PRN (07:53)
[2021-09-10] MEDS: HEPARIN SOD (PORCINE) 5000UNITS/ML 1ML VIAL/SYRINGE SC SCH ×2 (07:54→20:22)
[2021-09-10] MEDS: LOSARTAN 25 MG TAB PO SCH (07:54)
[2021-09-10] MEDS: MAGNESIUM OXIDE 400MG TAB (MAG-OX) PO SCH (07:55)
[2021-09-10] MEDS: FEXOFENADINE 60 MG TAB PO SCH (07:55)
[2021-09-10] MEDS: oxyBUTYnin 5 MG TAB PO SCH ×2 (07:55→20:22)
[2021-09-10] MEDS: LACTOBACILLUS ACIDOPHILUS CAP (BACID) PO SCH ×3 (07:55→20:21)
[2021-09-10] MEDS: MULTIVITAMINS/MINERALS THERAP 1 TAB PO SCH (07:55)
[2021-09-10] MEDS: PANTOPRAZOLE 40MG TAB (PROTONIX) PO SCH (07:55)
[2021-09-10] MEDS: THIAMINE 100 MG TAB PO SCH (07:55)
[2021-09-10] MEDS: ASPIRIN 81MG ENTERIC TABLET PO SCH (07:56)
[2021-09-10] MEDS: FOLIC ACID 1 MG TAB PO SCH (07:56)
[2021-09-10] MEDS: LIDOCAINE 5% (LIDODERM) PATCH TD SCH (07:56)
[2021-09-10] MEDS: LACTIC ACID 12% LOTION 225 GM BTL TOP SCH ×2 (07:57→20:23)
[2021-09-10] MEDS: REMEDY PHYTOPLEX Z-GUARD PASTE 113GM TUBE (FROM STOREROOM PRODUCT) TOP SCH ×3 (07:58→20:22)
[2021-09-10 14:00] VITALS: BP 128/82
[2021-09-10 19:46] VITALS: BP 135/73
[2021-09-10] MEDS: **NOTE PATIENT COMMENT** MISC XX SCH (20:23)
[2021-09-11 05:04] VITALS: BP 133/80
[2021-09-11 05:57] LABS: BASO # 0.1 10^3/uL (0.0-0.2); BASO % 2.5 % (0.0-1.0); EOS # 0.5 10^3/uL (0.0-0.5); EOS % 9.2 % (0.0-3.0); HEMATOCRIT 26.1 % (42.0-52.0); HEMOGLOBIN 8.5 g/dl (13.5-17.5); LYMPH # 1.6 10^3/uL (1.5-5.0); LYMPH % 28.2 % (24.0-44.0); MEAN CORPUSCULAR HEMOGLOBIN 31.5 pg (27.0-33.0); MEAN CORPUSCULAR HGB CONC 32.6 g/dl (32.0-36.5); MEAN CORPUSCULAR VOLUME 96.7 fl (80.0-96.0); MONO # 0.6 10^3/uL (0.0-0.8); MONO % 10.7 % (2.0-8.0); NEUTROPHILS # 2.8 10^3/uL (1.5-8.5); PLATELET COUNT, AUTOMATED 348 10^3/uL (150-450); WHITE BLOOD COUNT 5.7 10^3/uL (4.0-10.0)
[2021-09-11 06:22] LABS: CALCIUM LEVEL 8.3 MG/DL (8.8-10.2); CREATININE FOR GFR 1.41 MG/DL (0.70-1.30); GLOMERULAR FILTRATION RATE 52.9 (>42); POTASSIUM SERUM 4.4 MEQ/L (3.5-5.1)
[2021-09-11] MEDS: IBUPROFEN 400MG TAB PO SCH ×3 (06:45→20:30)
[2021-09-11] MEDS: LIDOCAINE 5% (LIDODERM) PATCH TD SCH (08:46)
[2021-09-11] MEDS: FEXOFENADINE 60 MG TAB PO SCH (08:47)
[2021-09-11] MEDS: PANTOPRAZOLE 40MG TAB (PROTONIX) PO SCH (08:47)
[2021-09-11] MEDS: MAGNESIUM OXIDE 400MG TAB (MAG-OX) PO SCH (08:47)
[2021-09-11] MEDS: HEPARIN SOD (PORCINE) 5000UNITS/ML 1ML VIAL/SYRINGE SC SCH ×2 (08:47→20:29)
[2021-09-11] MEDS: CEFDINIR 300 MG CAP (OMNICEF) PO SCH (08:47)
[2021-09-11] MEDS: ASPIRIN 81MG ENTERIC TABLET PO SCH (08:48)
[2021-09-11] MEDS: FOLIC ACID 1 MG TAB PO SCH (08:48)
[2021-09-11] MEDS: THIAMINE 100 MG TAB PO SCH (08:48)
[2021-09-11] MEDS: oxyBUTYnin 5 MG TAB PO SCH ×2 (08:48→20:29)
[2021-09-11] MEDS: MULTIVITAMINS/MINERALS THERAP 1 TAB PO SCH (08:50)
[2021-09-11] MEDS: LOSARTAN 25 MG TAB PO SCH (08:50)
[2021-09-11] MEDS: ACETAMINOPHEN TAB 650MG DOSE (2X325MG) PO PRN (08:50)
[2021-09-11] MEDS: LACTOBACILLUS ACIDOPHILUS CAP (BACID) PO SCH ×3 (08:50→20:29)
[2021-09-11] MEDS: REMEDY PHYTOPLEX Z-GUARD PASTE 113GM TUBE (FROM STOREROOM PRODUCT) TOP SCH ×3 (08:51→20:31)
[2021-09-11] MEDS: LACTIC ACID 12% LOTION 225 GM BTL TOP SCH ×2 (08:52→20:31)
[2021-09-11 14:00] VITALS: BP 115/65
[2021-09-11 19:32] VITALS: BP 144/86
[2021-09-11] MEDS: **NOTE PATIENT COMMENT** MISC XX SCH (20:31)
[2021-09-11] MEDS: MAGNESIUM SULFATE GRANULES(EPSOM SALT) 1LB TOP SCH (20:32)
[2021-09-12 06:00] VITALS: BP 142/86
[2021-09-12] MEDS: IBUPROFEN 400MG TAB PO SCH ×3 (06:08→20:03)
[2021-09-12] MEDS: LACTOBACILLUS ACIDOPHILUS CAP (BACID) PO SCH ×3 (08:44→20:02)
[2021-09-12] MEDS: THIAMINE 100 MG TAB PO SCH (08:44)
[2021-09-12] MEDS: MULTIVITAMINS/MINERALS THERAP 1 TAB PO SCH (08:44)
[2021-09-12] MEDS: MAGNESIUM OXIDE 400MG TAB (MAG-OX) PO SCH (08:44)
[2021-09-12] MEDS: PANTOPRAZOLE 40MG TAB (PROTONIX) PO SCH (08:44)
[2021-09-12] MEDS: FOLIC ACID 1 MG TAB PO SCH (08:44)
[2021-09-12] MEDS: LIDOCAINE 5% (LIDODERM) PATCH TD SCH (08:45)
[2021-09-12] MEDS: ASPIRIN 81MG ENTERIC TABLET PO SCH (08:45)
[2021-09-12] MEDS: FEXOFENADINE 60 MG TAB PO SCH (08:45)
[2021-09-12] MEDS: oxyBUTYnin 5 MG TAB PO SCH ×2 (08:45→20:04)
[2021-09-12] MEDS: LACTIC ACID 12% LOTION 225 GM BTL TOP SCH ×2 (08:47→20:04)
[2021-09-12] MEDS: HEPARIN SOD (PORCINE) 5000UNITS/ML 1ML VIAL/SYRINGE SC SCH ×2 (08:47→20:04)
[2021-09-12] MEDS: REMEDY PHYTOPLEX Z-GUARD PASTE 113GM TUBE (FROM STOREROOM PRODUCT) TOP SCH ×3 (08:47→20:05)
[2021-09-12] MEDS: LOSARTAN 25 MG TAB PO SCH (08:47)
[2021-09-12 14:00] VITALS: BP 129/80
[2021-09-12 20:00] VITALS: BP 118/79
[2021-09-12] MEDS: **NOTE PATIENT COMMENT** MISC XX SCH (20:05)
[2021-09-12] MEDS: MAGNESIUM SULFATE GRANULES(EPSOM SALT) 1LB TOP SCH (20:06)
[2021-09-13 06:00] VITALS: BP 144/88
[2021-09-13] MEDS: IBUPROFEN 400MG TAB PO SCH ×3 (06:05→20:20)
[2021-09-13] MEDS: LACTOBACILLUS ACIDOPHILUS CAP (BACID) PO SCH ×3 (08:55→20:20)
[2021-09-13] MEDS: PANTOPRAZOLE 40MG TAB (PROTONIX) PO SCH (08:55)
[2021-09-13] MEDS: MULTIVITAMINS/MINERALS THERAP 1 TAB PO SCH (08:55)
[2021-09-13] MEDS: MAGNESIUM OXIDE 400MG TAB (MAG-OX) PO SCH (08:55)
[2021-09-13] MEDS: FOLIC ACID 1 MG TAB PO SCH (08:55)
[2021-09-13] MEDS: FEXOFENADINE 60 MG TAB PO SCH (08:56)
[2021-09-13] MEDS: ASPIRIN 81MG ENTERIC TABLET PO SCH (08:56)
[2021-09-13] MEDS: LIDOCAINE 5% (LIDODERM) PATCH TD SCH (08:56)
[2021-09-13] MEDS: HEPARIN SOD (PORCINE) 5000UNITS/ML 1ML VIAL/SYRINGE SC SCH ×2 (08:56→20:21)
[2021-09-13] MEDS: THIAMINE 100 MG TAB PO SCH (08:56)
[2021-09-13] MEDS: LACTIC ACID 12% LOTION 225 GM BTL TOP SCH ×2 (08:57→20:21)
[2021-09-13] MEDS: LOSARTAN 25 MG TAB PO SCH (08:57)
[2021-09-13] MEDS: REMEDY PHYTOPLEX Z-GUARD PASTE 113GM TUBE (FROM STOREROOM PRODUCT) TOP SCH ×3 (08:57→20:21)
[2021-09-13] MEDS: oxyBUTYnin 5 MG TAB PO SCH ×2 (12:16→20:20)
[2021-09-13 14:00] VITALS: BP 137/92
[2021-09-13 19:18] VITALS: BP 159/86
[2021-09-13] MEDS: MAGNESIUM SULFATE GRANULES(EPSOM SALT) 1LB TOP SCH (19:41)
[2021-09-13] MEDS: **NOTE PATIENT COMMENT** MISC XX SCH (20:21)
[2021-09-14 05:39] VITALS: BP 132/74
[2021-09-14] MEDS: IBUPROFEN 400MG TAB PO SCH (06:43)
[2021-09-14] MEDS: HEPARIN SOD (PORCINE) 5000UNITS/ML 1ML VIAL/SYRINGE SC SCH (08:13)
[2021-09-14] MEDS: ASPIRIN 81MG ENTERIC TABLET PO SCH (08:14)
[2021-09-14] MEDS: PANTOPRAZOLE 40MG TAB (PROTONIX) PO SCH (08:14)
[2021-09-14] MEDS: FEXOFENADINE 60 MG TAB PO SCH (08:14)
[2021-09-14] MEDS: FOLIC ACID 1 MG TAB PO SCH (08:14)
[2021-09-14] MEDS: LIDOCAINE 5% (LIDODERM) PATCH TD SCH (08:14)
[2021-09-14] MEDS: THIAMINE 100 MG TAB PO SCH (08:14)
[2021-09-14] MEDS: MAGNESIUM OXIDE 400MG TAB (MAG-OX) PO SCH (08:14)
[2021-09-14] MEDS: MULTIVITAMINS/MINERALS THERAP 1 TAB PO SCH (08:14)
[2021-09-14] MEDS: LACTOBACILLUS ACIDOPHILUS CAP (BACID) PO SCH ×3 (08:14→20:09)
[2021-09-14] MEDS: REMEDY PHYTOPLEX Z-GUARD PASTE 113GM TUBE (FROM STOREROOM PRODUCT) TOP SCH ×3 (08:15→20:10)
[2021-09-14] MEDS: oxyBUTYnin 5 MG TAB PO SCH ×2 (08:15→20:09)
[2021-09-14] MEDS: LOSARTAN 25 MG TAB PO SCH (08:15)
[2021-09-14] MEDS: LACTIC ACID 12% LOTION 225 GM BTL TOP SCH ×2 (08:16→20:09)
[2021-09-14 09:32] LABS: BASO # 0.1 10^3/uL (0.0-0.2); BASO % 2.1 % (0.0-1.0); EOS # 0.5 10^3/uL (0.0-0.5); EOS % 7.9 % (0.0-3.0); HEMATOCRIT 28.6 % (42.0-52.0); HEMOGLOBIN 9.1 g/dl (13.5-17.5); LYMPH # 1.3 10^3/uL (1.5-5.0); MEAN CORPUSCULAR HEMOGLOBIN 31.6 pg (27.0-33.0); MEAN CORPUSCULAR HGB CONC 31.8 g/dl (32.0-36.5); MEAN CORPUSCULAR VOLUME 99.3 fl (80.0-96.0); MONO # 0.6 10^3/uL (0.0-0.8); MONO % 11.1 % (2.0-8.0); NEUTROPHILS # 3.2 10^3/uL (1.5-8.5); NEUTROPHILS % 56.5 % (36.0-66.0); PLATELET COUNT, AUTOMATED 324 10^3/uL (150-450); RED BLOOD COUNT 2.88 10^6/uL (4.30-6.10); WHITE BLOOD COUNT 5.7 10^3/uL (4.0-10.0)
[2021-09-14 09:55] LABS: CALCIUM LEVEL 8.5 MG/DL (8.8-10.2); CREATININE FOR GFR 1.35 MG/DL (0.70-1.30); GLOMERULAR FILTRATION RATE 55.6 (>42); POTASSIUM SERUM 3.9 MEQ/L (3.5-5.1)
[2021-09-14] MEDS: amLODIPine 5 MG TAB PO SCH (10:50)
[2021-09-14] MEDS ORDERED: IBUPROFEN 400MG TAB PO PRN (13:00)
[2021-09-14 14:04] VITALS: BP 110/62
[2021-09-14 20:00] VITALS: BP 130/91
[2021-09-14] MEDS: **NOTE PATIENT COMMENT** MISC XX SCH (20:10)
[2021-09-15 05:04] VITALS: BP 152/90
[2021-09-15] MEDS ORDERED: AMLO10TA PO (07:51)
[2021-09-15] MEDS ORDERED: ASPI81TA26 PO (07:51)
[2021-09-15] MEDS ORDERED: THIA100TA PO (07:51)
[2021-09-15] MEDS ORDERED: FOLI1TAB11 PO (07:51)
[2021-09-15] MEDS: THIAMINE 100 MG TAB PO SCH (08:30)
[2021-09-15] MEDS: PANTOPRAZOLE 40MG TAB (PROTONIX) PO SCH (08:30)
[2021-09-15] MEDS: LACTOBACILLUS ACIDOPHILUS CAP (BACID) PO SCH (08:30)
[2021-09-15] MEDS: FEXOFENADINE 60 MG TAB PO SCH (08:30)
[2021-09-15] MEDS: LIDOCAINE 5% (LIDODERM) PATCH TD SCH (08:30)
[2021-09-15 08:31] VITALS: BP 152/90
[2021-09-15] MEDS: ASPIRIN 81MG ENTERIC TABLET PO SCH (08:31)
[2021-09-15] MEDS: MULTIVITAMINS/MINERALS THERAP 1 TAB PO SCH (08:31)
[2021-09-15] MEDS: MAGNESIUM OXIDE 400MG TAB (MAG-OX) PO SCH (08:31)
[2021-09-15] MEDS: FOLIC ACID 1 MG TAB PO SCH (08:31)
[2021-09-15] MEDS: amLODIPine 5 MG TAB PO SCH (08:31)
[2021-09-15] MEDS: LACTIC ACID 12% LOTION 225 GM BTL TOP SCH (08:32)
[2021-09-15] MEDS: oxyBUTYnin 5 MG TAB PO SCH (08:32)
[2021-09-15] MEDS: REMEDY PHYTOPLEX Z-GUARD PASTE 113GM TUBE (FROM STOREROOM PRODUCT) TOP SCH (08:33)
== END 2021-09-15 11:50 | disposition home or self-care (01) | DRG 74 ==
LOC: M PM&R 09-04 05:00
PROVIDERS: ADMIT Physical Medicine & Rehabilitation; ATTEND Physical Medicine & Rehabilitation
DX: G62.1 Alcoholic polyneuropathy (principal); N10 Acute pyelonephritis; R53.1 Weakness; F10.10 Alcohol abuse, uncomplicated; M54.2 Cervicalgia; M54.50 Low back pain, unspecified; I10 Essential (primary) hypertension; Z74.09 Other reduced mobility; Z74.1 Need for assistance with personal care; J30.9 Allergic rhinitis, unspecified; Z79.82 Long term (current) use of aspirin; Z79.899 Other long term (current) drug therapy

== ENCOUNTER → 2021-11-09 | Outpatient (REF) | payer MEDICARE ==
[~2021-11-09] MED LIST changes: +ADVI200T PO; +AMLO10TA PO; +CEFD300CAP PO; +FOLI1TAB11 PO; +LIDO5TD TD; +THIA100TA PO
[2021-11-09 16:15] LABS: APPEARANCE, URINE CLEAR (CLEAR); BACTERIA, URINE AUTO NEGATIVE (NEGATIVE); BILIRUBIN, URINE AUTO NEGATIVE (NEGATIVE); BLOOD, URINE BLOOD 2+ (NEGATIVE); COLOR, URINE YELLOW (YELLOW); GLUCOSE, URINE (UA) AUTO NEGATIVE (NEGATIVE); KETONE, URINE AUTO 1+ mg/dL (NEGATIVE); LEUKOCYTE ESTERASE, URINE AUTO NEGATIVE (NEGATIVE); MUCUS, URINE SMALL (NEGATIVE); NITRITE, URINE AUTO NEGATIVE (NEGATIVE); PROTEIN, URINE AUTO NEGATIVE (NEGATIVE); RBC, URINE AUTO 19 /HPF (0-3); SPECIFIC GRAVITY URINE AUTO 1.012 (1.002-1.035); SQUAMOUS EPITHELIAL CELL UR AU 0 /HPF (0-6); UROBILINOGEN, URINE AUTO 0.2 mg/dL (0.0-2.0); WBC, URINE AUTO 4 /HPF (0-3)
[2021-11-09 16:18] LABS: BASO # 0.1 10^3/uL (0.0-0.2); BASO % 1.2 % (0.0-1.0); EOS # 0.3 10^3/uL (0.0-0.5); EOS % 3.4 % (0.0-3.0); HEMATOCRIT 32.9 % (42.0-52.0); HEMOGLOBIN 11.4 g/dl (13.5-17.5); LYMPH # 1.5 10^3/uL (1.5-5.0); LYMPH % 20.2 % (24.0-44.0); MEAN CORPUSCULAR HEMOGLOBIN 32.3 pg (27.0-33.0); MEAN CORPUSCULAR HGB CONC 34.7 g/dl (32.0-36.5); MEAN CORPUSCULAR VOLUME 93.2 fl (80.0-96.0); MONO # 0.8 10^3/uL (0.0-0.8); MONO % 10.9 % (2.0-8.0); NEUTROPHILS # 4.9 10^3/uL (1.5-8.5); PLATELET COUNT, AUTOMATED 183 10^3/uL (150-450); RED BLOOD COUNT 3.53 10^6/uL (4.30-6.10); WHITE BLOOD COUNT 7.6 10^3/uL (4.0-10.0)
[2021-11-09 16:45] LABS: BLOOD UREA NITROGEN 15 MG/DL (7-18); CALCIUM LEVEL 8.9 MG/DL (8.8-10.2); CARBON DIOXIDE LEVEL 28 MEQ/L (21-32); CHLORIDE LEVEL 102 MEQ/L (98-107); CREATININE FOR GFR 1.04 MG/DL (0.70-1.30); FERRITIN 102 NG/ML (26-388); GLOMERULAR FILTRATION RATE > 60.0 (>42); GLUCOSE, FASTING 90 MG/DL (70-100); IRON (FE) 162 UG/DL (65-175); PERCENT SATURATION 56.4 % (19.7-50.0); POTASSIUM SERUM 3.3 MEQ/L (3.5-5.1); SODIUM LEVEL 140 MEQ/L (136-145); TOTAL IRON BINDING CAPACITY 287 UG/DL (250-450)
[2021-11-09 16:52] LABS: VITAMIN B12 LEVEL 232 PG/ML
[2021-11-09 16:53] LABS: FOLATE 12.6 NG/ML
== END ==
LOC: M SFHCCAPE 11:27
PROVIDERS: ATTEND Physician Assistant
DX: E87.6 Hypokalemia (principal); D64.9 Anemia, unspecified

== ENCOUNTER → 2021-12-25 | Outpatient (CLI) | payer MEDICARE ==
[2021-12-25 18:03] LABS: BASO # 0.1 10^3/uL (0.0-0.2); BASO % 1.5 % (0.0-1.0); EOS # 0.4 10^3/uL (0.0-0.5); EOS % 5.4 % (0.0-3.0); LYMPH # 1.4 10^3/uL (1.5-5.0); MEAN CORPUSCULAR HEMOGLOBIN 32.3 pg (27.0-33.0); MEAN CORPUSCULAR HGB CONC 34.4 g/dl (32.0-36.5); MEAN CORPUSCULAR VOLUME 93.8 fl (80.0-96.0); MONO # 0.7 10^3/uL (0.0-0.8); NEUTROPHILS % 61.8 % (36.0-66.0); PLATELET COUNT, AUTOMATED 208 10^3/uL (150-450); RED BLOOD COUNT 3.41 10^6/uL (4.30-6.10); WHITE BLOOD COUNT 6.5 10^3/uL (4.0-10.0)
[2021-12-25 18:20] LABS: HEMOGLOBIN A1c 4.5 %
[2021-12-25 19:11] LABS: ALBUMIN 3.5 GM/DL (3.2-5.2); ALT/SGPT 18 U/L (12-78); BILIRUBIN,TOTAL 0.3 MG/DL (0.2-1.0); BLOOD UREA NITROGEN 15 MG/DL (7-18); CALCIUM LEVEL 8.6 MG/DL (8.8-10.2); CARBON DIOXIDE LEVEL 29 MEQ/L (21-32); CHLORIDE LEVEL 103 MEQ/L (98-107); GLOMERULAR FILTRATION RATE > 60.0 (>42); GLUCOSE, FASTING 73 MG/DL (70-100); RHEUMATOID FACTOR QUANT < 10.0 IU/ML (<15.0); SODIUM LEVEL 142 MEQ/L (136-145); TOTAL PROTEIN 6.8 GM/DL (6.4-8.2); VITAMIN B12 LEVEL > 2000 PG/ML
[2021-12-25 20:35] LABS: ERYTHROCYTE SEDIMENTATION RATE 32 mm/hr (0-20)
[2021-12-29 13:48] LABS: ALBUMIN 3.91 GM/DL (3.29-5.55); ALBUMIN % 57.5 % (55.8-66.1); ALPHA-1-GLOBULIN % 4.7 % (2.9-4.9); ALPHA-1-GLOBULINS 0.32 GM/DL (0.17-0.41); ALPHA-2-GLOBULINS 0.63 GM/DL (0.42-0.99); ALPHA-2-GLOBULINS % 9.2 % (7.1-11.8); BETA-1-GLOBULINS 0.46 GM/DL (0.28-0.60); BETA-1-GLOBULINS % 6.8 % (4.7-7.2); BETA-2-GLOBULINS 0.39 GM/DL (0.19-0.55); BETA-2-GLOBULINS % 5.8 % (3.2-6.5); GAMMA GLOBULINS 1.09 GM/DL (0.65-1.58)
[2021-12-31 08:41] LABS: DRVV SCREEN 37.6 SEC
[2022-01-11 15:09] LABS: ANTINUCLEAR ANTIBODIES DIRECT Negative (Negative); VITAMIN B6,PYRIDOXAL PHOSPHATE 5.5 ug/L (3.4-65.2); VITAMIN E(ALPHA TOCOPHEROL) 9.2 mg/L (9.0-29.0); VITAMIN E(GAMMA TOCOPHEROL) 0.8 mg/L (0.5-4.9)
== END ==
LOC: M LAB 16:36
PROVIDERS: ATTEND Psychiatry & Neurology Neurology
DX: G62.9 Polyneuropathy, unspecified (principal); Z79.899 Other long term (current) drug therapy

== ENCOUNTER → 2021-12-25 | Outpatient (CLI) | payer MEDICARE | LOC: M LAB 16:29 | PROVIDERS: ATTEND Physician Assistant | DX: E87.6 Hypokalemia (principal); R31.21 Asymptomatic microscopic hematuria; E53.8 Deficiency of other specified B group vitamins ==

== ENCOUNTER → 2022-03-03 | Outpatient (REF) | payer MEDICARE ==
[2022-03-03 21:16] LABS: ALBUMIN 3.7 GM/DL (3.2-5.2); ALT/SGPT 20 U/L (12-78); BILIRUBIN,TOTAL 0.5 MG/DL (0.2-1.0); BLOOD UREA NITROGEN 16 MG/DL (7-18); CALCIUM LEVEL 9.5 MG/DL (8.8-10.2); CARBON DIOXIDE LEVEL 29 MEQ/L (21-32); CHLORIDE LEVEL 104 MEQ/L (98-107); CREATININE FOR GFR 1.05 MG/DL (0.70-1.30); FOLATE 12.8 NG/ML; GLOMERULAR FILTRATION RATE > 60.0 (>42); GLUCOSE, FASTING 161 MG/DL (70-100); MAGNESIUM LEVEL 1.5 MG/DL (1.8-2.4); SODIUM LEVEL 142 MEQ/L (136-145); TOTAL PROTEIN 6.8 GM/DL (6.4-8.2); VITAMIN B12 LEVEL 677 PG/ML
[2022-03-03 21:29] LABS: POTASSIUM SERUM 2.8 MEQ/L (3.5-5.1)
== END ==
LOC: M SFHCCAPE 11:24
PROVIDERS: ATTEND Physician Assistant
DX: I10 Essential (primary) hypertension (principal); E53.8 Deficiency of other specified B group vitamins

== ENCOUNTER → 2022-03-08 | Outpatient (REF) | payer MEDICARE ==
[~2022-03-08] MED LIST changes: +AMLO1TAB25 PO; +ERGO500029 PO; +MAG-400T7 PO; +OXYB-54 PO; +POTA-141 PO; +SILD50TA2 PO
[2022-03-08 17:44] LABS: MAGNESIUM LEVEL 1.7 MG/DL (1.8-2.4); POTASSIUM SERUM 4.3 MEQ/L (3.5-5.1)
== END ==
LOC: M SFHCCAPE 10:55
PROVIDERS: ATTEND Physician Assistant
DX: E87.6 Hypokalemia (principal)

== ENCOUNTER → 2022-05-03 | Outpatient (REF) | payer MEDICARE ==
[2022-05-03 19:08] LABS: BLOOD UREA NITROGEN 18 MG/DL (7-18); CALCIUM LEVEL 9.2 MG/DL (8.8-10.2); CARBON DIOXIDE LEVEL 30 MEQ/L (21-32); CHLORIDE LEVEL 104 MEQ/L (98-107); CREATININE FOR GFR 1.09 MG/DL (0.70-1.30); GLOMERULAR FILTRATION RATE > 60.0 (>42); GLUCOSE, FASTING 114 MG/DL (70-100); MAGNESIUM LEVEL 1.7 MG/DL (1.8-2.4); SODIUM LEVEL 141 MEQ/L (136-145)
[2022-05-03 20:00] LABS: VITAMIN B12 LEVEL 393 PG/ML (247-911)
[2022-05-05 08:10] LABS: FOLATE 10.9 ng/mL (>3.0)
== END ==
LOC: M SFHCCAPE 10:43
PROVIDERS: ATTEND Physician Assistant
DX: E83.42 Hypomagnesemia (principal); E87.6 Hypokalemia; E53.8 Deficiency of other specified B group vitamins

== ENCOUNTER → 2022-07-08 | Outpatient (CLI) | payer MEDICARE ==
[~2022-07-08] MED LIST changes: +GASTROGRAFIN SOLUTION 30ML As Ordered ONE; +ISOVUE-370 76% 100ML VIAL As Ordered ONE
== END ==
LOC: M RAD 14:01
PROVIDERS: ATTEND Physician Assistant
DX: F10.10 Alcohol abuse, uncomplicated (principal); R63.4 Abnormal weight loss; G62.9 Polyneuropathy, unspecified; M85.652 Other cyst of bone, left thigh
CPT/HCPCS: 71260; 74177; Q9963; Q9967

== ENCOUNTER → 2022-08-23 | Outpatient (REF) | payer MEDICARE ==
[~2022-08-23] MED LIST changes: -GASTROGRAFIN SOLUTION 30ML As Ordered ONE; -ISOVUE-370 76% 100ML VIAL As Ordered ONE
[2022-08-23 17:08] LABS: BASO # 0.1 10^3/uL (0.0-0.2); EOS # 0.2 10^3/uL (0.0-0.5); EOS % 2.3 % (0.0-3.0); HEMATOCRIT 31.7 % (42.0-52.0); HEMOGLOBIN 10.5 g/dl (13.5-17.5); LYMPH # 1.8 10^3/uL (1.5-5.0); LYMPH % 20.3 % (24.0-44.0); MEAN CORPUSCULAR HEMOGLOBIN 32.3 pg (27.0-33.0); MEAN CORPUSCULAR HGB CONC 33.1 g/dl (32.0-36.5); MEAN CORPUSCULAR VOLUME 97.5 fl (80.0-96.0); MONO # 1.1 10^3/uL (0.0-0.8); MONO % 12.3 % (2.0-8.0); NEUTROPHILS # 5.5 10^3/uL (1.5-8.5); NEUTROPHILS % 63.8 % (36.0-66.0); PLATELET COUNT, AUTOMATED 260 10^3/uL (150-450); RED BLOOD COUNT 3.25 10^6/uL (4.30-6.10); WHITE BLOOD COUNT 8.6 10^3/uL (4.0-10.0)
[2022-08-23 17:33] LABS: MAGNESIUM LEVEL 1.4 MG/DL (1.8-2.4)
[2022-08-23 17:34] LABS: ALBUMIN 3.8 G/DL (3.2-5.2); BILIRUBIN,TOTAL 1.2 MG/DL (0.3-1.2); CALCIUM LEVEL 8.6 MG/DL (8.3-10.6); CREATININE FOR GFR 1.43 MG/DL (0.70-1.30); GLOMERULAR FILTRATION RATE 51.9 (>42); POTASSIUM SERUM 3.2 MMOL/L (3.5-5.1)
[2022-08-23 17:35] LABS: FOLATE 20.1 NG/ML (>5.4)
[2022-08-28 07:07] LABS: HOMOCYST(E)INE SERUM 23.4 umol/L (0.0-19.2); Methylmalonic Acid 546 nmol/L (0-378)
== END ==
LOC: M SFHCCAPE 10:31
PROVIDERS: ATTEND Physician Assistant
DX: E83.42 Hypomagnesemia (principal); E53.8 Deficiency of other specified B group vitamins; R63.4 Abnormal weight loss

== ENCOUNTER → 2022-11-08 | Outpatient (REF) | payer MEDICARE ==
[2022-11-08 20:25] LABS: BLOOD UREA NITROGEN 26 MG/DL (9-23); CARBON DIOXIDE LEVEL 25 MMOL/L (20-31); CHLORIDE LEVEL 102 MMOL/L (98-107); GLOMERULAR FILTRATION RATE > 60.0 (>42); GLUCOSE, FASTING 169 MG/DL (74-106); MAGNESIUM LEVEL 1.3 MG/DL (1.8-2.4); POTASSIUM SERUM 3.8 MMOL/L (3.5-5.1); SODIUM LEVEL 140 MMOL/L (136-145)
== END ==
LOC: M SFHCCAPE 10:34
PROVIDERS: ATTEND Physician Assistant
DX: E87.6 Hypokalemia (principal); M85.60 Other cyst of bone, unspecified site

== ENCOUNTER → 2022-11-12 | Outpatient (CLI) | payer MEDICARE | LOC: M PLARAD 10:49 | PROVIDERS: ATTEND Physician Assistant | DX: M85.60 Other cyst of bone, unspecified site (principal); R93.3 Abnormal findings on diagnostic imaging of other parts of digestive tract; R93.89 Abnormal findings on diagnostic imaging of other specified body structures ==

== ENCOUNTER → 2023-01-25 | Outpatient (REF) ==
[~2023-01-25] MED LIST changes: +MAGN400T2 PO; +MIDO5TA PO; +PT COMMENT; +VITMTA PO
[2023-01-25 07:56] LABS: HEMATOCRIT 33.5 % (42.0-52.0); HEMOGLOBIN 10.9 g/dl (13.5-17.5); MEAN CORPUSCULAR HEMOGLOBIN 29.9 pg (27.0-33.0); MEAN CORPUSCULAR HGB CONC 32.5 g/dl (32.0-36.5); PLATELET COUNT, AUTOMATED 356 10^3/uL (150-450); RED BLOOD COUNT 3.64 10^6/uL (4.30-6.10); WHITE BLOOD COUNT 5.7 10^3/uL (4.0-10.0)
[2023-01-25 08:30] LABS: ALBUMIN 2.4 G/DL (3.2-5.2); ALKALINE PHOSPHATASE 79 U/L (46-116); ALT/SGPT 14 U/L (7.0-40); AST/SGOT 22 U/L (<34); BILIRUBIN,TOTAL 0.3 MG/DL (0.3-1.2); BLOOD UREA NITROGEN 24 MG/DL (9-23); CALCIUM LEVEL 8.7 MG/DL (8.3-10.6); CARBON DIOXIDE LEVEL 29 MMOL/L (20-31); CHLORIDE LEVEL 99 MMOL/L (98-107); CREATININE FOR GFR 0.83 MG/DL (0.70-1.30); GLOMERULAR FILTRATION RATE > 60.0 (>42); GLUCOSE, FASTING 84 MG/DL (74-106); MAGNESIUM LEVEL 1.7 MG/DL (1.8-2.4); POTASSIUM SERUM 4.6 MMOL/L (3.5-5.1); SODIUM LEVEL 134 MMOL/L (136-145); TOTAL PROTEIN 5.5 G/DL (5.7-8.2)
[2023-01-25 08:34] LABS: FOLATE > 24.00 NG/ML (>5.4); TOTAL 25(OH) VITAMIN D 80.6 NG/ML (20.0-100.0)
[2023-01-25 08:35] LABS: VITAMIN B12 LEVEL 448 PG/ML (211-911)
== END ==
LOC: SKLAB4 07:00
PROVIDERS: ATTEND Internal Medicine
DX: N17.9 Acute kidney failure, unspecified (principal)

== ENCOUNTER → 2023-02-03 | Outpatient (REF) | payer MEDICARE, BC, OTHER | LOC: M SFHCWOUN 17:52 | PROVIDERS: ATTEND Surgery | DX: S51.002A Unspecified open wound of left elbow, initial encounter (principal); M86.18 Other acute osteomyelitis, other site; X58.XXXA Exposure to other specified factors, initial encounter; Y92.9 Unspecified place or not applicable; Y93.9 Activity, unspecified; Y99.9 Unspecified external cause status | CPT/HCPCS: 11042; 11043; 11046; 88304; 88311; G0463 ==

== ENCOUNTER → 2023-02-10 | Outpatient (REF) ==
[2023-02-10 07:13] LABS: HEMATOCRIT 33.3 % (42.0-52.0); HEMOGLOBIN 10.9 g/dl (13.5-17.5); MEAN CORPUSCULAR HEMOGLOBIN 29.9 pg (27.0-33.0); MEAN CORPUSCULAR HGB CONC 32.7 g/dl (32.0-36.5); MEAN CORPUSCULAR VOLUME 91.5 fl (80.0-96.0); PLATELET COUNT, AUTOMATED 247 10^3/uL (150-450); RED BLOOD COUNT 3.64 10^6/uL (4.30-6.10); WHITE BLOOD COUNT 6.4 10^3/uL (4.0-10.0)
[2023-02-10 07:26] LABS: BLOOD UREA NITROGEN 41 MG/DL (9-23); CARBON DIOXIDE LEVEL 30 MMOL/L (20-31); CHLORIDE LEVEL 103 MMOL/L (98-107); CREATININE FOR GFR 0.94 MG/DL (0.70-1.30); GLOMERULAR FILTRATION RATE > 60.0 (>42); GLUCOSE, FASTING 85 MG/DL (74-106); POTASSIUM SERUM 3.9 MMOL/L (3.5-5.1); SODIUM LEVEL 139 MMOL/L (136-145)
== END ==
LOC: SKLAB4 09:11
PROVIDERS: ATTEND Internal Medicine
DX: I10 Essential (primary) hypertension (principal)

== ENCOUNTER → 2023-02-22 | Outpatient (CLI) | payer MEDICARE, BC, OTHER | LOC: M SOG 08:07 | PROVIDERS: ATTEND Physician Assistant | DX: M25.522 Pain in left elbow (principal); M19.022 Primary osteoarthritis, left elbow ==

== ENCOUNTER → 2023-03-29 | Outpatient (REF) | payer MEDICARE ==
[2023-03-29 18:44] LABS: BLOOD UREA NITROGEN 30 MG/DL (9-23); CARBON DIOXIDE LEVEL 29 MMOL/L (20-31); CHLORIDE LEVEL 101 MMOL/L (98-107); CREATININE FOR GFR 1.13 MG/DL (0.70-1.30); GLOMERULAR FILTRATION RATE > 60.0 (>42); GLUCOSE, FASTING 93 MG/DL (74-106); MAGNESIUM LEVEL 1.6 MG/DL (1.8-2.4); SODIUM LEVEL 140 MMOL/L (136-145)
== END ==
LOC: M SFHCCAPE 11:19
PROVIDERS: ATTEND Physician Assistant
DX: E53.8 Deficiency of other specified B group vitamins (principal); E83.42 Hypomagnesemia; E87.6 Hypokalemia

== ENCOUNTER → 2023-04-20 | Outpatient (REF) | payer MEDICARE ==
[2023-04-20 18:47] LABS: BASO # 0.1 10^3/uL (0.0-0.2); EOS # 0.2 10^3/uL (0.0-0.5); EOS % 2.2 % (0.0-3.0); HEMATOCRIT 34.2 % (42.0-52.0); HEMOGLOBIN 11.1 g/dl (13.5-17.5); LYMPH # 0.9 10^3/uL (1.5-5.0); LYMPH % 10.8 % (24.0-44.0); MEAN CORPUSCULAR HEMOGLOBIN 28.8 pg (27.0-33.0); MEAN CORPUSCULAR HGB CONC 32.5 g/dl (32.0-36.5); MEAN CORPUSCULAR VOLUME 88.8 fl (80.0-96.0); MONO % 12.4 % (2.0-8.0); NEUTROPHILS # 6.1 10^3/uL (1.5-8.5); NEUTROPHILS % 73.2 % (36.0-66.0); PLATELET COUNT, AUTOMATED 278 10^3/uL (150-450); RED BLOOD COUNT 3.85 10^6/uL (4.30-6.10); WHITE BLOOD COUNT 8.4 10^3/uL (4.0-10.0)
[2023-04-20 19:07] LABS: FOLATE > 24.0 NG/ML (>5.4); VITAMIN B12 LEVEL 659 PG/ML (211-911)
[2023-04-20 19:08] LABS: THYROID STIMULATING HORMONE 3.082 uIU/ML (0.55-4.78)
[2023-04-20 19:28] LABS: ALBUMIN 3.4 G/DL (3.2-5.2); ALKALINE PHOSPHATASE 76 U/L (46-116); ALT/SGPT 30 U/L (7.0-40); AST/SGOT 28 U/L (<34); BILIRUBIN,TOTAL 0.6 MG/DL (0.3-1.2); BLOOD UREA NITROGEN 46 MG/DL (9-23); CALCIUM LEVEL 9.5 MG/DL (8.3-10.6); CARBON DIOXIDE LEVEL 24 MMOL/L (20-31); CHLORIDE LEVEL 99 MMOL/L (98-107); CREATININE FOR GFR 1.39 MG/DL (0.70-1.30); GLOMERULAR FILTRATION RATE 53.5 (>42); GLUCOSE, FASTING 105 MG/DL (74-106); MAGNESIUM LEVEL 1.8 MG/DL (1.8-2.4); POTASSIUM SERUM 3.6 MMOL/L (3.5-5.1); SODIUM LEVEL 137 MMOL/L (136-145); TOTAL PROTEIN 6.9 G/DL (5.7-8.2)
== END ==
LOC: M SFHCCAPE 12:03
PROVIDERS: ATTEND Physician Assistant Medical
DX: R42 Dizziness and giddiness (principal); Z79.899 Other long term (current) drug therapy

== ENCOUNTER → 2023-04-29 | Outpatient (REF) | payer MEDICARE ==
[2023-04-29 17:54] LABS: BASO # 0.1 10^3/uL (0.0-0.2); BASO % 0.4 % (0.0-1.0); EOS % 0.1 % (0.0-3.0); HEMOGLOBIN 10.4 g/dl (13.5-17.5); LYMPH # 0.6 10^3/uL (1.5-5.0); LYMPH % 4.3 % (24.0-44.0); MEAN CORPUSCULAR HEMOGLOBIN 28.3 pg (27.0-33.0); MEAN CORPUSCULAR HGB CONC 33.5 g/dl (32.0-36.5); MEAN CORPUSCULAR VOLUME 84.5 fl (80.0-96.0); MONO # 1.3 10^3/uL (0.0-0.8); MONO % 9.7 % (2.0-8.0); NEUTROPHILS # 11.7 10^3/uL (1.5-8.5); NEUTROPHILS % 85.1 % (36.0-66.0); PLATELET COUNT, AUTOMATED 268 10^3/uL (150-450); RED BLOOD COUNT 3.67 10^6/uL (4.30-6.10); WHITE BLOOD COUNT 13.8 10^3/uL (4.0-10.0)
[2023-04-29 18:35] LABS: BILIRUBIN,TOTAL 0.5 MG/DL (0.3-1.2); CALCIUM LEVEL 8.9 MG/DL (8.3-10.6); CREATININE FOR GFR 1.27 MG/DL (0.70-1.30); GLOMERULAR FILTRATION RATE 59.3 (>42); POTASSIUM SERUM 3.2 MMOL/L (3.5-5.1); TOTAL PROTEIN 6.3 G/DL (5.7-8.2)
== END ==
LOC: M SFHCCLAY 15:22
PROVIDERS: ATTEND Physician Assistant
DX: R50.9 Fever, unspecified (principal)

== ENCOUNTER 2023-06-17 13:21 | Emergency (ER) | payer MEDICARE ==
[2023-06-17] MEDS ORDERED: ACETAMINOPHEN TAB 650MG DOSE (2X325MG) PO ONE (13:50)
[2023-06-17] MEDS ORDERED: cefTRIAXone SOD 2 GM in D5W MINI-BAG PLUS 50 ML IV ONE (14:00)
[2023-06-17 14:26] LABS: BASO # 0.1 10^3/uL (0.0-0.2); BASO % 0.3 % (0.0-1.0); HEMATOCRIT 34.7 % (42.0-52.0); HEMOGLOBIN 11.6 g/dl (13.5-17.5); LYMPH # 1.5 10^3/uL (1.5-5.0); LYMPH % 8.6 % (24.0-44.0); MEAN CORPUSCULAR HEMOGLOBIN 27.9 pg (27.0-33.0); MEAN CORPUSCULAR HGB CONC 33.4 g/dl (32.0-36.5); MEAN CORPUSCULAR VOLUME 83.4 fl (80.0-96.0); MONO % 11.4 % (2.0-8.0); NEUTROPHILS # 13.7 10^3/uL (1.5-8.5); NEUTROPHILS % 79.2 % (36.0-66.0); PLATELET COUNT, AUTOMATED 453 10^3/uL (150-450); RED BLOOD COUNT 4.16 10^6/uL (4.30-6.10); WHITE BLOOD COUNT 17.3 10^3/uL (4.0-10.0)
[2023-06-17 14:39] LABS: INR 1.26; PROTHROMBIN TIME 15.4 SECONDS (12.5-14.5)
[2023-06-17 14:40] LABS: PARTIAL THROMBOPLASTIN TIME 42.7 SECONDS (24.8-34.2)
[2023-06-17 14:54] LABS: LIPASE 19 U/L (12-53)
[2023-06-17 14:56] LABS: ALBUMIN 2.8 G/DL (3.2-5.2); ALKALINE PHOSPHATASE 100 U/L (46-116); ALT/SGPT 16 U/L (7.0-40); AST/SGOT 24 U/L (<34); BILIRUBIN,DIRECT 0.5 MG/DL (<0.4); BILIRUBIN,TOTAL 1.1 MG/DL (0.3-1.2); BLOOD UREA NITROGEN 16 MG/DL (9-23); CALCIUM LEVEL 8.5 MG/DL (8.3-10.6); CARBON DIOXIDE LEVEL 25 MMOL/L (20-31); CHLORIDE LEVEL 96 MMOL/L (98-107); CK-MB VALUE MASS < 1.0 NG/ML (<3.6); CREATININE FOR GFR 0.89 MG/DL (0.70-1.30); GLOMERULAR FILTRATION RATE > 60.0 (>42); GLUCOSE, FASTING 117 MG/DL (74-106); POTASSIUM SERUM 3.9 MMOL/L (3.5-5.1); SODIUM LEVEL 134 MMOL/L (136-145); TOTAL PROTEIN 6.9 G/DL (5.7-8.2)
[2023-06-17 14:58] LABS: FREE T4 1.03 NG/DL (0.89-1.76)
[2023-06-17 14:59] LABS: CPK CREATINE PHOSPHOKINASE 125 U/L (46-171)
[2023-06-17] MEDS ORDERED: ISOVUE-370 76% 100ML VIAL As Ordered ONE (15:10)
[2023-06-17] MEDS ORDERED: MED REC IN PROGRESS XX SCH (16:10)
[2023-06-17] MEDS ORDERED: NS 1,000 ML IV SCH (16:25)
[2023-06-17] MEDS ORDERED: B-122500 PO (16:36)
[2023-06-17] MEDS ORDERED: PREVAGEN PO (16:39)
[2023-06-17] MEDS ORDERED: ALLE180T33 PO (16:40)
[2023-06-17] MEDS ORDERED: HOME MED LIST COMPLETE! XX SCH (16:45)
[2023-06-17 18:18] VITALS: BP 120/74; TEMP 98.4; O2SAT 97
== END 2023-06-17 18:38 | disposition short-term general hospital (02) ==
LOC: EDBD 13:21 → M ED 13:47
DX: S12.201A Unspecified nondisplaced fracture of third cervical vertebra, initial encounter for closed fracture (principal); M51.36 Other intervertebral disc degeneration, lumbar region; M43.12 Spondylolisthesis, cervical region; M46.96 Unspecified inflammatory spondylopathy, lumbar region; A41.9 Sepsis, unspecified organism; N39.0 Urinary tract infection, site not specified; R00.0 Tachycardia, unspecified; I10 Essential (primary) hypertension; M54.50 Low back pain, unspecified; Z79.82 Long term (current) use of aspirin; Z79.899 Other long term (current) drug therapy
CPT/HCPCS: 70450; 71260; 72125; 74177; 80048; 80076; 81001; 82550; 82553; 83605; 83690; 84439; 84443; 84484; 85025; 85610; 85730; 87040; 87088; 87186; 87486; 87581; 87633; 87798; 93005; 93041; 96374; 99285; J0696; Q9967

== ENCOUNTER 2023-08-05 11:34 | Emergency (ER) | payer MEDICARE ==
[~2023-08-05] VITALS: Ht 182.9 cm; Wt 63.6 kg
[~2023-08-05 11:34] MED LIST changes: +B-122500 PO; +BACTDSTA PO; +FERR325T18 PO; +PREVAGEN PO; +SODI1TAB6 PO
[2023-08-05] MEDS ORDERED: NS 1,000 ML IV SCH (12:10)
[2023-08-05 12:39] LABS: VENOUS BASE EXCESS -1.5 (-2.0-2.0); VENOUS HCO3 23.2 MMOL/L (23.0-27.0); VENOUS PARTIAL PRESSURE CO2 38.6 mmHg (38.0-50.0); VENOUS PARTIAL PRESSURE O2 42.6 mmHg (30.0-50.0); VENOUS PH 7.396 UNITS (7.330-7.430); VENOUS STANDARD HCO3 22.8 MMOL/L; VENOUS TOTAL CO2 24.3 MMOL/L (24.0-28.0)
[2023-08-05 12:54] LABS: BASO # 0.2 10^3/uL (0.0-0.2); EOS # 0.3 10^3/uL (0.0-0.5); EOS % 4.1 % (0.0-3.0); HEMATOCRIT 31.2 % (42.0-52.0); HEMOGLOBIN 10.2 g/dl (13.5-17.5); LYMPH # 1.2 10^3/uL (1.5-5.0); LYMPH % 15.2 % (24.0-44.0); MEAN CORPUSCULAR HEMOGLOBIN 28.1 pg (27.0-33.0); MEAN CORPUSCULAR HGB CONC 32.7 g/dl (32.0-36.5); MONO # 0.7 10^3/uL (0.0-0.8); MONO % 9.5 % (2.0-8.0); NEUTROPHILS # 5.2 10^3/uL (1.5-8.5); NEUTROPHILS % 68.8 % (36.0-66.0); RED BLOOD COUNT 3.63 10^6/uL (4.30-6.10); WHITE BLOOD COUNT 7.6 10^3/uL (4.0-10.0)
[2023-08-05 12:55] LABS: PLATELET COUNT, AUTOMATED 310 10^3/uL (150-450)
[2023-08-05 13:13] LABS: AMYLASE 61 U/L (30-118)
[2023-08-05 13:20] LABS: PROCALCITONIN 0.08 ng/ml; RSV AMPLIFICATION NEGATIVE (NEGATIVE)
[2023-08-05 13:25] LABS: ALBUMIN 2.9 G/DL (3.2-5.2); ALKALINE PHOSPHATASE 92 U/L (46-116); ALT/SGPT 20 U/L (7.0-40); AST/SGOT 32 U/L (<34); BILIRUBIN,DIRECT 0.1 MG/DL (<0.4); BILIRUBIN,TOTAL 0.3 MG/DL (0.3-1.2); BLOOD UREA NITROGEN 30 MG/DL (9-23); CALCIUM LEVEL 8.6 MG/DL (8.3-10.6); CARBON DIOXIDE LEVEL 24 MMOL/L (20-31); CHLORIDE LEVEL 103 MMOL/L (98-107); CREATININE FOR GFR 1.11 MG/DL (0.70-1.30); GLOMERULAR FILTRATION RATE > 60.0 (>42); GLUCOSE, FASTING 92 MG/DL (74-106); POTASSIUM SERUM 4.9 MMOL/L (3.5-5.1); SODIUM LEVEL 135 MMOL/L (136-145); TOTAL PROTEIN 7.1 G/DL (5.7-8.2)
[2023-08-05] MEDS ORDERED: MED REC IN PROGRESS XX SCH (13:25)
[2023-08-05] MEDS ORDERED: GENTAMICIN 120 MG in D5W 50 ML IV ONE (14:00)
[2023-08-05] MEDS ORDERED: DALBAVANCIN 1,500 MG in D5W 250 ML IV ONE (14:10)
[2023-08-05 14:19] LABS: INR 1.25; PROTHROMBIN TIME 15.3 SECONDS (12.5-14.5)
[2023-08-05 16:13] LABS: APPEARANCE, URINE CLEAR (CLEAR); BACTERIA, URINE AUTO 1+ (NEGATIVE); BILIRUBIN, URINE AUTO NEGATIVE (NEGATIVE); BLOOD, URINE BLOOD NEGATIVE (NEGATIVE); COLOR, URINE YELLOW (YELLOW); GLUCOSE, URINE (UA) AUTO NEGATIVE (NEGATIVE); KETONE, URINE AUTO NEGATIVE (NEGATIVE); LEUKOCYTE ESTERASE, URINE AUTO TRACE (NEGATIVE); NITRITE, URINE AUTO NEGATIVE (NEGATIVE); PROTEIN, URINE AUTO NEGATIVE (NEGATIVE); RBC, URINE AUTO 4 /HPF (0-3); SPECIFIC GRAVITY URINE AUTO 1.012 (1.002-1.035); SQUAMOUS EPITHELIAL CELL UR AU 0 /HPF (0-6); UROBILINOGEN, URINE AUTO 0.2 mg/dL (0.0-2.0); WBC, URINE AUTO 8 /HPF (0-3)
[2023-08-05 16:34] VITALS: BP 115/76; TEMP 97.8; O2SAT 100
== END 2023-08-05 16:44 | disposition home or self-care (01) ==
LOC: M ED 11:34
DX: L03.312 Cellulitis of back [any part except buttock and flank] (principal); I12.9 Hypertensive chronic kidney disease with stage 1 through stage 4 chronic kidney disease, or unspecified chronic kidney disease; N18.9 Chronic kidney disease, unspecified; F10.10 Alcohol abuse, uncomplicated; Z79.899 Other long term (current) drug therapy; Z79.82 Long term (current) use of aspirin
CPT/HCPCS: 71045; 72220; 73080; 80048; 80076; 81001; 82150; 82803; 83605; 84145; 85025; 85610; 85730; 86140; 87040; 87088; 87631; 93005; 93041; 94760; 96361; 96365; 96367; 99285; J0875; J1580

== ENCOUNTER 2023-08-09 00:30 | Emergency (ER) | payer MEDICARE ==
[~2023-08-09] VITALS: Ht 182.9 cm; Wt 63.6 kg
[2023-08-09 04:12] LABS: BASO # 0.2 10^3/uL (0.0-0.2); BASO % 1.1 % (0.0-1.0); EOS # 0.1 10^3/uL (0.0-0.5); EOS % 0.6 % (0.0-3.0); HEMATOCRIT 32.9 % (42.0-52.0); HEMOGLOBIN 10.6 g/dl (13.5-17.5); LYMPH # 1.3 10^3/uL (1.5-5.0); LYMPH % 9.6 % (24.0-44.0); MEAN CORPUSCULAR HEMOGLOBIN 28.3 pg (27.0-33.0); MEAN CORPUSCULAR HGB CONC 32.2 g/dl (32.0-36.5); MONO # 0.8 10^3/uL (0.0-0.8); MONO % 6.1 % (2.0-8.0); NEUTROPHILS # 10.8 10^3/uL (1.5-8.5); NEUTROPHILS % 82.1 % (36.0-66.0); PLATELET COUNT, AUTOMATED 404 10^3/uL (150-450); RED BLOOD COUNT 3.74 10^6/uL (4.30-6.10); WHITE BLOOD COUNT 13.2 10^3/uL (4.0-10.0)
[2023-08-09 04:37] LABS: ALBUMIN 3.4 G/DL (3.2-5.2); ALKALINE PHOSPHATASE 98 U/L (46-116); ALT/SGPT 61 U/L (7.0-40); AST/SGOT 98 U/L (<34); BILIRUBIN,DIRECT 0.1 MG/DL (<0.4); BILIRUBIN,TOTAL 0.3 MG/DL (0.3-1.2); BLOOD UREA NITROGEN 33 MG/DL (9-23); CALCIUM LEVEL 9.3 MG/DL (8.3-10.6); CARBON DIOXIDE LEVEL 22 MMOL/L (20-31); CHLORIDE LEVEL 107 MMOL/L (98-107); CK-MB VALUE MASS < 1.0 NG/ML (<3.6); CPK CREATINE PHOSPHOKINASE 58 U/L (46-171); CREATININE FOR GFR 1.28 MG/DL (0.70-1.30); GLOMERULAR FILTRATION RATE 58.8 (>42); GLUCOSE, FASTING 130 MG/DL (74-106); LIPASE 26 U/L (12-53); MB/CK RELATIVE INDEX 1.72 (< OR =4); POTASSIUM SERUM 5.3 MMOL/L (3.5-5.1); SODIUM LEVEL 141 MMOL/L (136-145); TOTAL PROTEIN 7.8 G/DL (5.7-8.2)
[2023-08-09 05:40] LABS: CK-MB VALUE MASS < 1.0 NG/ML (<3.6)
[2023-08-09 05:47] LABS: CPK CREATINE PHOSPHOKINASE 24 U/L (46-171); MB/CK RELATIVE INDEX 4.16 (< OR =4)
[2023-08-09 07:00] VITALS: O2SAT 99
[2023-08-09 07:37] VITALS: BP 146/66; TEMP 96.9
== END 2023-08-09 07:44 | disposition home or self-care (01) ==
LOC: EDBD 00:30 → M ED 00:30
DX: K22.2 Esophageal obstruction (principal); I10 Essential (primary) hypertension; Z79.82 Long term (current) use of aspirin; Z79.899 Other long term (current) drug therapy; Z79.810 Long term (current) use of selective estrogen receptor modulators (SERMs)

== ENCOUNTER → 2023-09-27 | Outpatient (REF) | payer MEDICARE ==
[2023-09-27 17:57] LABS: BASO # 0.1 10^3/uL (0.0-0.2); BASO % 0.8 % (0.0-1.0); EOS # 0.2 10^3/uL (0.0-0.5); EOS % 2.3 % (0.0-3.0); HEMATOCRIT 40.4 % (42.0-52.0); HEMOGLOBIN 13.1 g/dl (13.5-17.5); LYMPH # 2.4 10^3/uL (1.5-5.0); LYMPH % 27.5 % (24.0-44.0); MEAN CORPUSCULAR HEMOGLOBIN 29.6 pg (27.0-33.0); MEAN CORPUSCULAR HGB CONC 32.4 g/dl (32.0-36.5); MEAN CORPUSCULAR VOLUME 91.4 fl (80.0-96.0); MONO # 0.9 10^3/uL (0.0-0.8); NEUTROPHILS # 5.1 10^3/uL (1.5-8.5); NEUTROPHILS % 59.3 % (36.0-66.0); PLATELET COUNT, AUTOMATED 227 10^3/uL (150-450); RED BLOOD COUNT 4.42 10^6/uL (4.30-6.10); WHITE BLOOD COUNT 8.6 10^3/uL (4.0-10.0)
[2023-09-27 18:02] LABS: ERYTHROCYTE SEDIMENTATION RATE 16 mm/hr (0-20)
[2023-09-27 18:25] LABS: C REACTIVE PROTEIN QUANTITATIV < 0.40 MG/DL (<1.0)
[2023-09-27 18:30] LABS: ALBUMIN 3.6 G/DL (3.2-5.2); ALKALINE PHOSPHATASE 105 U/L (46-116); ALT/SGPT 9 U/L (7.0-40); AST/SGOT 19 U/L (<34); BILIRUBIN,TOTAL 0.5 MG/DL (0.3-1.2); BLOOD UREA NITROGEN 15 MG/DL (9-23); CALCIUM LEVEL 9.1 MG/DL (8.3-10.6); CARBON DIOXIDE LEVEL 26 MMOL/L (20-31); CHLORIDE LEVEL 106 MMOL/L (98-107); CREATININE FOR GFR 1.06 MG/DL (0.70-1.30); GLOMERULAR FILTRATION RATE > 60.0 (>42); GLUCOSE, FASTING 101 MG/DL (74-106); MAGNESIUM LEVEL 1.5 MG/DL (1.8-2.4); POTASSIUM SERUM 3.6 MMOL/L (3.5-5.1); SODIUM LEVEL 141 MMOL/L (136-145); TOTAL PROTEIN 6.7 G/DL (5.7-8.2)
== END ==
LOC: M SFHCCAPE 10:34
PROVIDERS: ATTEND Physician Assistant Medical
DX: D72.829 Elevated white blood cell count, unspecified (principal); G62.9 Polyneuropathy, unspecified; E63.9 Nutritional deficiency, unspecified; I95.1 Orthostatic hypotension

== ENCOUNTER → 2023-10-03 | Outpatient (REF) | payer MEDICARE | LOC: M SFHCCAPE 11:22 | PROVIDERS: ATTEND Physician Assistant Medical | DX: D72.829 Elevated white blood cell count, unspecified (principal); Z79.899 Other long term (current) drug therapy ==

== ENCOUNTER → 2023-10-12 | Outpatient (CLI) | payer MEDICARE ==
[~2023-10-12] MED LIST changes: +E-Z-GAS II EFFERVESCENT PACKET (SODIUM BICARB./CITRIC ACID/SIMETHICONE) As Ordered ONE; +E-Z-HD 98% w/w 340GM SUSP BTL As Ordered ONE; +E-Z-PAQUE 96% w/w SUSP 176GM BTL As Ordered ONE
== END ==
LOC: M RAD 09:15
PROVIDERS: ATTEND Physician Assistant Medical
DX: R13.10 Dysphagia, unspecified (principal); K44.0 Diaphragmatic hernia with obstruction, without gangrene

== ENCOUNTER 2023-12-22 08:00 | Day surgery (SDC) | payer MEDICARE ==
[~2023-12-22] VITALS: Ht 182.9 cm; Wt 67.5 kg
[~2023-12-22 08:00] MED LIST changes: -E-Z-GAS II EFFERVESCENT PACKET (SODIUM BICARB./CITRIC ACID/SIMETHICONE) As Ordered ONE; -E-Z-HD 98% w/w 340GM SUSP BTL As Ordered ONE; -E-Z-PAQUE 96% w/w SUSP 176GM BTL As Ordered ONE; +MAGN400T35 PO
[2023-12-22] MEDS: NS 1,000 ML IV ONE (09:01)
[2023-12-22] MEDS ORDERED: fentaNYL 100 MCG/2 ML INJECTION As Ordered ONE (09:21)
[2023-12-22] MEDS ORDERED: LIDOCAINE 2% 100MG/5ML SDV (FOR ANES.) As Ordered ONE (09:22)
[2023-12-22] MEDS ORDERED: propofoL 200 MG/20 ML VIAL As Ordered ONE (09:22)
[2023-12-22] MEDS ORDERED: GLYCOPYRROLATE INJ 0.2 MG/ML 2 ML VIAL As Ordered ONE (09:23)
[2023-12-22 10:15] VITALS: TEMP 96.9
[2023-12-22 10:45] VITALS: BP 90/52; O2SAT 100
== END 2023-12-22 11:01 | disposition home or self-care (01) ==
LOC: M OPP 08:00
PROVIDERS: ATTEND Internal Medicine Gastroenterology
DX: K22.2 Esophageal obstruction (principal); K21.00 Gastro-esophageal reflux disease with esophagitis, without bleeding; Z12.11 Encounter for screening for malignant neoplasm of colon; D12.0 Benign neoplasm of cecum; K29.50 Unspecified chronic gastritis without bleeding; K44.9 Diaphragmatic hernia without obstruction or gangrene; Z86.010 Personal history of colon polyps; K57.30 Diverticulosis of large intestine without perforation or abscess without bleeding; K64.8 Other hemorrhoids; K64.4 Residual hemorrhoidal skin tags; Z90.49 Acquired absence of other specified parts of digestive tract; I10 Essential (primary) hypertension; Z85.828 Personal history of other malignant neoplasm of skin; Z79.899 Other long term (current) drug therapy; Z79.82 Long term (current) use of aspirin
CPT/HCPCS: 43239; 45385; 88305; J3010

== ENCOUNTER → 2024-02-08 | Outpatient (REF) | payer MEDICARE ==
[2024-02-08 17:46] LABS: TOTAL IRON BINDING CAPACITY 345 UG/DL (250-425)
[2024-02-08 17:47] LABS: BASO # 0.1 10^3/uL (0.0-0.2); BASO % 1.5 % (0.0-1.0); EOS # 0.2 10^3/uL (0.0-0.5); EOS % 3.8 % (0.0-3.0); HEMATOCRIT 37.8 % (42.0-52.0); HEMOGLOBIN 12.5 g/dl (13.5-17.5); LYMPH # 1.5 10^3/uL (1.5-5.0); LYMPH % 24.8 % (24.0-44.0); MEAN CORPUSCULAR HGB CONC 33.1 g/dl (32.0-36.5); MEAN CORPUSCULAR VOLUME 96.7 fl (80.0-96.0); MONO # 0.7 10^3/uL (0.0-0.8); MONO % 11.8 % (2.0-8.0); NEUTROPHILS # 3.5 10^3/uL (1.5-8.5); NEUTROPHILS % 57.6 % (36.0-66.0); PLATELET COUNT, AUTOMATED 194 10^3/uL (150-450); RED BLOOD COUNT 3.91 10^6/uL (4.30-6.10); WHITE BLOOD COUNT 6.1 10^3/uL (4.0-10.0)
[2024-02-08 17:48] LABS: ALBUMIN 3.7 G/DL (3.2-5.2); ALKALINE PHOSPHATASE 110 U/L (46-116); ALT/SGPT 14 U/L (7.0-40); AST/SGOT 14 U/L (<34); BILIRUBIN,TOTAL 0.8 MG/DL (0.3-1.2); BLOOD UREA NITROGEN 20 MG/DL (9-23); CARBON DIOXIDE LEVEL 28 MMOL/L (20-31); CHLORIDE LEVEL 101 MMOL/L (98-107); CREATININE FOR GFR 1.15 MG/DL (0.70-1.30); FERRITIN 123.7 NG/ML (10.5-307.3); GLOMERULAR FILTRATION RATE > 60.0 (>42); GLUCOSE, FASTING 95 MG/DL (74-106); IRON (FE) 93 UG/DL (65-175); MAGNESIUM LEVEL 1.4 MG/DL (1.8-2.4); POTASSIUM SERUM 3.2 MMOL/L (3.5-5.1); SODIUM LEVEL 138 MMOL/L (136-145); TOTAL PROTEIN 6.7 G/DL (5.7-8.2)
== END ==
LOC: M SFHCCAPE 09:40
PROVIDERS: ATTEND Physician Assistant Medical
DX: D50.9 Iron deficiency anemia, unspecified (principal); E83.42 Hypomagnesemia; I95.1 Orthostatic hypotension

== ENCOUNTER 2024-03-12 15:02 | Inpatient (IN) | payer MEDICARE ==
[~2024-03-12] VITALS: Ht 182.9 cm; Wt 67.0 kg
[2024-03-12] MEDS: LIDOCAINE 2% 5ML JELLY UROJET TOP ONE (16:40)
[2024-03-12] MEDS: LIDOCAINE 2% W/EPINEPHRINE 20ML VIAL **PRES FREE INJ ONE (16:45)
[2024-03-12 16:58] LABS: BASO # 0.1 10^3/uL (0.0-0.2); BASO % 0.4 % (0.0-1.0); EOS % 0.1 % (0.0-3.0); HEMATOCRIT 33.8 % (42.0-52.0); HEMOGLOBIN 11.5 g/dl (13.5-17.5); LYMPH # 0.7 10^3/uL (1.5-5.0); LYMPH % 5.4 % (24.0-44.0); MEAN CORPUSCULAR HEMOGLOBIN 32.1 pg (27.0-33.0); MEAN CORPUSCULAR VOLUME 94.4 fl (80.0-96.0); MONO # 1.1 10^3/uL (0.0-0.8); MONO % 8.1 % (2.0-8.0); NEUTROPHILS # 11.6 10^3/uL (1.5-8.5); NEUTROPHILS % 85.6 % (36.0-66.0); PLATELET COUNT, AUTOMATED 244 10^3/uL (150-450); RED BLOOD COUNT 3.58 10^6/uL (4.30-6.10); WHITE BLOOD COUNT 13.5 10^3/uL (4.0-10.0)
[2024-03-12 17:16] LABS: VENOUS BASE EXCESS -13.7 (-2.0-2.0); VENOUS HCO3 13.1 MMOL/L (23.0-27.0); VENOUS O2 SATURATION 66.4 % (60.0-80.0); VENOUS PARTIAL PRESSURE CO2 33.7 mmHg (38.0-50.0); VENOUS PARTIAL PRESSURE O2 39.1 mmHg (30.0-50.0); VENOUS PH 7.207 UNITS (7.330-7.430); VENOUS STANDARD HCO3 13.4 MMOL/L; VENOUS TOTAL CO2 14.1 MMOL/L (24.0-28.0)
[2024-03-12] MEDS: NS 500 ML IV ONE ×2 (17:19→21:01)
[2024-03-12 17:37] LABS: CK-MB VALUE MASS 2.5 NG/ML (<3.6)
[2024-03-12 17:38] LABS: MB/CK RELATIVE INDEX 3.37 (< OR =4)
[2024-03-12 17:39] LABS: ALBUMIN 2.9 G/DL (3.2-5.2); ALKALINE PHOSPHATASE 85 U/L (46-116); ALT/SGPT 13 U/L (7.0-40); AST/SGOT 21 U/L (<34); BILIRUBIN,DIRECT 0.6 MG/DL (<0.4); BILIRUBIN,TOTAL 1.2 MG/DL (0.3-1.2); CK-MB VALUE MASS 2.6 NG/ML (<3.6); CPK CREATINE PHOSPHOKINASE 70 U/L (46-171); MAGNESIUM LEVEL 1.7 MG/DL (1.8-2.4); MB/CK RELATIVE INDEX 3.71 (< OR =4); SALICYLATE LEVEL < 3.0 MG/DL (<30); TOTAL PROTEIN 6.1 G/DL (5.7-8.2)
[2024-03-12 17:41] LABS: THYROID STIMULATING HORMONE 1.447 uIU/ML (0.55-4.78)
[2024-03-12 17:42] LABS: BLOOD UREA NITROGEN 18 MG/DL (9-23); CALCIUM LEVEL 7.9 MG/DL (8.3-10.6); CARBON DIOXIDE LEVEL 13 MMOL/L (20-31); CHLORIDE LEVEL 101 MMOL/L (98-107); CREATININE FOR GFR 1.02 MG/DL (0.70-1.30); GLOMERULAR FILTRATION RATE > 60.0 (>42); GLUCOSE, FASTING 63 MG/DL (74-106); POTASSIUM SERUM 3.8 MMOL/L (3.5-5.1); SODIUM LEVEL 134 MMOL/L (136-145)
[2024-03-12] MEDS: NS 1,000 ML IV ONE ×2 (18:06→21:01)
[2024-03-12] MEDS: PIPERACILLIN/TAZOBACTAM SOD 4.5 GM in D5W MINI-BAG PLUS 50 ML IV ONE (18:33)
[2024-03-12 19:01] LABS: AMPHETAMINES LEVEL URINE NEGATIVE (NEGATIVE); BARBITURATES URINE NEGATIVE (NEGATIVE); BENZODIAZEPINES URINE NEGATIVE (NEGATIVE); CANNABINOIDS URINE NEGATIVE (NEGATIVE); COCAINE METABOLITE URINE NEGATIVE (NEGATIVE); METHADONE URINE NEGATIVE (NEGATIVE); OPIATES URINE NEGATIVE (NEGATIVE); PHENCYCLIDINE URINE NEGATIVE (NEGATIVE)
[2024-03-12] MEDS ORDERED: ISOVUE-370 76% 100ML VIAL As Ordered ONE (19:41)
[2024-03-12] MEDS: MAG SULF 1GM/100ML (MAG RUN) 1 GM in IV 1 EA IV ONE (21:01)
[2024-03-12] MEDS ORDERED: LORazepam 2 MG TAB PO PRN ×2 (21:15→22:40)
[2024-03-12] MEDS: THIAMINE 100 MG TAB PO SCH (21:36)
[2024-03-12] MEDS ORDERED: BISACODYL 10MG SUPP PR PRN (22:40)
[2024-03-12] MEDS ORDERED: MOM 30ML SUSPENSION UDC PO PRN (22:40)
[2024-03-12] MEDS ORDERED: ACETAMINOPHEN TAB 650MG DOSE (2X325MG) PO PRN (22:40)
[2024-03-12] MEDS ORDERED: MAALOX 30 ML SUSP *UDC PO PRN (22:40)
[2024-03-12] MEDS ORDERED: DEXTROMETHORPHAN 60MG/10ML SUSP 90ML BTL(DELSYM) PO PRN (23:05)
[2024-03-12] MEDS ORDERED: ALBUTEROL SULFATE 2.5MG/0.5ML INH NEB SOLN NEB PRN (23:05)
[2024-03-12 23:28] LABS: INR 1.26; PARTIAL THROMBOPLASTIN TIME 48.5 SECONDS (24.8-34.2); PROTHROMBIN TIME 15.4 SECONDS (12.5-14.5)
[2024-03-12] MEDS ORDERED: B-121TAB3 PO (23:54)
[2024-03-12] MEDS ORDERED: HOME MED LIST COMPLETE! XX SCH (23:55)
[2024-03-13] VITALS (19 sets, daily range): BP systolic 109–149; BP diastolic 52–97; TEMP 96.7–99.8; O2SAT 94–97
[2024-03-13] MEDS ORDERED: KETO2SHA8 TOP (00:02)
[2024-03-13] MEDS ORDERED: POTA-298 PO (00:02)
[2024-03-13] MEDS ORDERED: PANT40TA29 PO (00:02)
[2024-03-13] MEDS ORDERED: SUCR1SS PO (00:02)
[2024-03-13] MEDS ORDERED: KETO2CR EXT (00:02)
[2024-03-13] MEDS: CEFEPIME HCL 2 GM in D5W 50 ML IV SCH (01:15)
[2024-03-13 04:35] LABS: HEMATOCRIT 29.1 % (42.0-52.0); HEMOGLOBIN 10.3 g/dl (13.5-17.5); MEAN CORPUSCULAR HGB CONC 35.4 g/dl (32.0-36.5); MEAN CORPUSCULAR VOLUME 90.4 fl (80.0-96.0); PLATELET COUNT, AUTOMATED 213 10^3/uL (150-450); RED BLOOD COUNT 3.22 10^6/uL (4.30-6.10); WHITE BLOOD COUNT 9.4 10^3/uL (4.0-10.0)
[2024-03-13 05:17] LABS: PROCALCITONIN 0.31 ng/ml
[2024-03-13 05:46] LABS: ALBUMIN 2.7 G/DL (3.2-5.2); ALKALINE PHOSPHATASE 73 U/L (46-116); ALT/SGPT 12 U/L (7.0-40); AST/SGOT 19 U/L (<34); BILIRUBIN,TOTAL 1.4 MG/DL (0.3-1.2); BLOOD UREA NITROGEN 14 MG/DL (9-23); CALCIUM LEVEL 7.6 MG/DL (8.3-10.6); CARBON DIOXIDE LEVEL 19 MMOL/L (20-31); CHLORIDE LEVEL 107 MMOL/L (98-107); CREATININE FOR GFR 0.85 MG/DL (0.70-1.30); GLOMERULAR FILTRATION RATE > 60.0 (>42); GLUCOSE, FASTING 129 MG/DL (74-106); MAGNESIUM LEVEL 1.6 MG/DL (1.8-2.4); POTASSIUM SERUM 3.4 MMOL/L (3.5-5.1); SODIUM LEVEL 137 MMOL/L (136-145); TOTAL PROTEIN 5.5 G/DL (5.7-8.2)
[2024-03-13 05:51] LABS: ABG BASE EXCESS -7.1 (-2.0-2.0); ABG HCO3 16.1 MMOL/L (22.0-26.0); ABG O2 SATURATION 98.4 % (95.0-99.0); ABG PARTIAL PRESSURE CO2 25.9 mmHg (35.0-45.0); ABG PARTIAL PRESSURE O2 124.4 mmHg (75.0-100.0); ABG STANDARD HCO3 18.7 MMOL/L. (22.0-26.0); ABG TOTAL CO2 16.9 MMOL/L (23.0-31.0); ABG pH (ARTERIAL) 7.412 UNITS (7.350-7.450)
[2024-03-13] MEDS: MAG SULF 1GM/100ML (MAG RUN) 1 GM in IV 1 EA IV ONE (06:14)
[2024-03-13] MEDS: KCL 10MEQ/100ML SWI (KRUN) 10 MEQ in IV 1 EA IV SCH (07:09)
[2024-03-13] MEDS: MAG SULF 1GM/100ML (MAG RUN) 1 GM in IV 1 EA IV SCH (08:07)
[2024-03-13] MEDS: THIAMINE 100 MG TAB PO SCH (08:10)
[2024-03-13] MEDS: MAGNESIUM OXIDE 400MG TAB (MAG-OX) PO SCH (08:10)
[2024-03-13] MEDS: DOCUSATE SODIUM 100MG CAPSULE PO SCH (08:10)
[2024-03-13] MEDS: FOLIC ACID 1MG TAB PO SCH (08:10)
[2024-03-13] MEDS: MIRALAX *UNIT DOSE* 17GM PACKET PO SCH (08:10)
[2024-03-13] MEDS: MULTIVITAMINS/MINERALS THERAP 1 TAB PO SCH (08:10)
[2024-03-13] MEDS ORDERED: FOLIC ACID 1MG TAB PO SCH (09:00)
[2024-03-13] MEDS ORDERED: MULTIVITAMINS/MINERALS THERAP 1 TAB PO SCH (09:00)
[2024-03-13] MEDS: POTASSIUM CHLORIDE 10MEQ SR TABLET PO ONE (09:06)
[2024-03-13] MEDS ORDERED: KCL 10MEQ/100ML SWI (KRUN) 10 MEQ in IV 1 EA IV SCH (12:00)
[2024-03-13] MEDS: SUCRALFATE SUSP 1GM/10ML UD PO SCH (12:00)
[2024-03-13] MEDS ORDERED: fentaNYL 100 MCG/2 ML INJECTION As Ordered ONE (13:28)
[2024-03-13] MEDS ORDERED: MIDAZOLAM INJ 2MG/2ML VIAL As Ordered ONE (13:28)
[2024-03-13] MEDS ORDERED: LIDOCAINE 2% 100MG/5ML SDV (FOR ANES.) As Ordered ONE (13:28)
[2024-03-13] MEDS ORDERED: KETOROLAC 60MG 2ML VIAL As Ordered ONE (13:28)
[2024-03-13] MEDS ORDERED: propofoL 200 MG/20 ML VIAL As Ordered ONE (13:28)
[2024-03-13] MEDS ORDERED: ACETAMINOPHEN 1000MG 100ML IV BAG As Ordered ONE (13:29)
[2024-03-13] MEDS ORDERED: ONDANSETRON 4MG 2ML VIAL As Ordered ONE (13:31)
[2024-03-13] MEDS: ceFAZolin 2 GM/D5W 50 ML IV BAG As Ordered ONE (14:35)
[2024-03-13] MEDS ORDERED: ONDANSETRON 4MG 2ML VIAL IV PRN (15:00)
[2024-03-13] MEDS ORDERED: oxyCODONE 5MG TAB PO PRN (15:00)
[2024-03-13] MEDS: LR 1,000 ML IV SCH (15:00)
[2024-03-13] MEDS ORDERED: fentaNYL 100 MCG/2 ML INJECTION IV PRN (15:00)
[2024-03-13] MEDS ORDERED: HYDROMORPHONE HCL 0.5 MG/ 0.5 ML SYRINGE IV PRN (15:00)
[2024-03-13] MEDS: cefTRIAXone SOD 1 GM in D5W MINI-BAG PLUS 50 ML IV SCH (15:47)
[2024-03-13] MEDS: AZITHROMYCIN 250MG TABLET PO SCH (15:48)
[2024-03-13] MEDS: ASPIRIN 81MG ENTERIC TABLET PO SCH (15:48)
[2024-03-13] MEDS: CYANOCOBALAMIN 500 MCG TAB PO SCH (15:49)
[2024-03-13] MEDS: PANTOPRAZOLE 40MG TAB (PROTONIX) PO SCH (15:49)
[2024-03-13] MEDS: FINASTERIDE 5MG TAB PO SCH (15:49)
[2024-03-13 17:37] LABS: BLOOD UREA NITROGEN 9 MG/DL (9-23); CARBON DIOXIDE LEVEL 22 MMOL/L (20-31); CHLORIDE LEVEL 105 MMOL/L (98-107); CREATININE FOR GFR 0.81 MG/DL (0.70-1.30); GLOMERULAR FILTRATION RATE > 60.0 (>42); GLUCOSE, FASTING 151 MG/DL (74-106); POTASSIUM SERUM 3.5 MMOL/L (3.5-5.1); SODIUM LEVEL 136 MMOL/L (136-145)
[2024-03-13] MEDS: TAMSULOSIN 0.4 MG CAP PO SCH (20:39)
[2024-03-14] VITALS (7 sets, daily range): BP systolic 111–136; BP diastolic 74–89; TEMP 97.2–98.5; O2SAT 93–100
[2024-03-14 04:41] LABS: BASO % 0.2 % (0.0-1.0); HEMATOCRIT 34.4 % (42.0-52.0); HEMOGLOBIN 11.7 g/dl (13.5-17.5); LYMPH # 0.3 10^3/uL (1.5-5.0); LYMPH % 5.9 % (24.0-44.0); MEAN CORPUSCULAR HEMOGLOBIN 31.7 pg (27.0-33.0); MEAN CORPUSCULAR VOLUME 93.2 fl (80.0-96.0); MONO # 0.1 10^3/uL (0.0-0.8); MONO % 2.7 % (2.0-8.0); NEUTROPHILS # 4.5 10^3/uL (1.5-8.5); PLATELET COUNT, AUTOMATED 217 10^3/uL (150-450); RED BLOOD COUNT 3.69 10^6/uL (4.30-6.10); WHITE BLOOD COUNT 4.9 10^3/uL (4.0-10.0)
[2024-03-14 04:56] LABS: BLOOD UREA NITROGEN 12 MG/DL (9-23); CALCIUM LEVEL 8.7 MG/DL (8.3-10.6); CARBON DIOXIDE LEVEL 22 MMOL/L (20-31); CHLORIDE LEVEL 106 MMOL/L (98-107); CREATININE FOR GFR 1.11 MG/DL (0.70-1.30); GLOMERULAR FILTRATION RATE > 60.0 (>42); GLUCOSE, FASTING 373 MG/DL (74-106); POTASSIUM SERUM 3.5 MMOL/L (3.5-5.1); SODIUM LEVEL 137 MMOL/L (136-145)
[2024-03-14] MEDS: POTASSIUM CHLORIDE 10MEQ SR TABLET PO SCH (08:03)
[2024-03-14] MEDS ORDERED: DEXTROSE 50% 50ML SYRINGE IV PRN (11:20)
[2024-03-14] MEDS ORDERED: GLUCOSE 4 GM CHEW PO PRN (11:20)
[2024-03-14] MEDS ORDERED: GLUCAGON INJ 1MG VIAL SC PRN (11:20)
[2024-03-14] MEDS: INSULIN LISPRO (NovoLOG) PER UNIT SC SCH ×2 (11:51→21:00)
[2024-03-14 11:59] LABS: HEMOGLOBIN A1c 4.5 % (4.0-6.0)
[2024-03-14] MEDS: LIDOCAINE 5% (LIDODERM) PATCH TD SCH (15:18)
[2024-03-14] MEDS: FEXOFENADINE 60MG TAB PO PRN (21:57)
[2024-03-15] VITALS (8 sets, daily range): BP systolic 96–131; BP diastolic 62–91; TEMP 95.4–98.9; O2SAT 93–98
[2024-03-15 05:56] LABS: BASO % 0.2 % (0.0-1.0); EOS % 0.1 % (0.0-3.0); LYMPH # 1.1 10^3/uL (1.5-5.0); LYMPH % 11.6 % (24.0-44.0); MEAN CORPUSCULAR HEMOGLOBIN 31.8 pg (27.0-33.0); MEAN CORPUSCULAR HGB CONC 34.5 g/dl (32.0-36.5); MEAN CORPUSCULAR VOLUME 92.4 fl (80.0-96.0); MONO # 0.6 10^3/uL (0.0-0.8); MONO % 5.9 % (2.0-8.0); NEUTROPHILS # 7.6 10^3/uL (1.5-8.5); NEUTROPHILS % 81.9 % (36.0-66.0); PLATELET COUNT, AUTOMATED 204 10^3/uL (150-450); RED BLOOD COUNT 3.14 10^6/uL (4.30-6.10); WHITE BLOOD COUNT 9.3 10^3/uL (4.0-10.0)
[2024-03-15 06:27] LABS: BLOOD UREA NITROGEN 10 MG/DL (9-23); CALCIUM LEVEL 8.3 MG/DL (8.3-10.6); CARBON DIOXIDE LEVEL 26 MMOL/L (20-31); CHLORIDE LEVEL 112 MMOL/L (98-107); CREATININE FOR GFR 0.99 MG/DL (0.70-1.30); GLOMERULAR FILTRATION RATE > 60.0 (>42); GLUCOSE, FASTING 99 MG/DL (74-106); POTASSIUM SERUM 3.3 MMOL/L (3.5-5.1); SODIUM LEVEL 143 MMOL/L (136-145)
[2024-03-15] MEDS ORDERED: CEFDINIR 300 MG CAP (OMNICEF) PO SCH (09:00)
[2024-03-15] MEDS: LevoFLOXacin 750 MG TABLET PO SCH (09:30)
[2024-03-16 02:04] VITALS: O2SAT 95
[2024-03-16 04:20] VITALS: BP 116/75; TEMP 97.9; O2SAT 94
[2024-03-16 06:00] LABS: BASO # 0.1 10^3/uL (0.0-0.2); BASO % 1.1 % (0.0-1.0); EOS # 0.1 10^3/uL (0.0-0.5); EOS % 1.8 % (0.0-3.0); HEMATOCRIT 28.3 % (42.0-52.0); HEMOGLOBIN 9.8 g/dl (13.5-17.5); LYMPH # 1.4 10^3/uL (1.5-5.0); LYMPH % 22.9 % (24.0-44.0); MEAN CORPUSCULAR HEMOGLOBIN 32.1 pg (27.0-33.0); MEAN CORPUSCULAR HGB CONC 34.6 g/dl (32.0-36.5); MEAN CORPUSCULAR VOLUME 92.8 fl (80.0-96.0); MONO # 0.6 10^3/uL (0.0-0.8); MONO % 9.5 % (2.0-8.0); NEUTROPHILS % 63.9 % (36.0-66.0); PLATELET COUNT, AUTOMATED 212 10^3/uL (150-450); RED BLOOD COUNT 3.05 10^6/uL (4.30-6.10); WHITE BLOOD COUNT 6.2 10^3/uL (4.0-10.0)
[2024-03-16 06:44] LABS: BLOOD UREA NITROGEN 11 MG/DL (9-23); CALCIUM LEVEL 7.9 MG/DL (8.3-10.6); CARBON DIOXIDE LEVEL 27 MMOL/L (20-31); CHLORIDE LEVEL 109 MMOL/L (98-107); CREATININE FOR GFR 1.02 MG/DL (0.70-1.30); GLOMERULAR FILTRATION RATE > 60.0 (>42); GLUCOSE, FASTING 78 MG/DL (74-106); POTASSIUM SERUM 2.9 MMOL/L (3.5-5.1); SODIUM LEVEL 140 MMOL/L (136-145)
[2024-03-16] MEDS: POTASSIUM CHLORIDE 10MEQ SR TABLET PO ONE (09:03)
[2024-03-16] MEDS: KCL 10MEQ/100ML SWI (KRUN) 10 MEQ in IV 1 EA IV ONE (09:03)
[2024-03-16] MEDS: POTASSIUM CHLORIDE 10MEQ SR TABLET PO SCH (10:01)
[2024-03-16 12:00] VITALS: BP 113/75; TEMP 98.9; O2SAT 96
[2024-03-16 13:00] LABS: BLOOD UREA NITROGEN 12 MG/DL (9-23); CALCIUM LEVEL 7.8 MG/DL (8.3-10.6); CARBON DIOXIDE LEVEL 26 MMOL/L (20-31); CHLORIDE LEVEL 108 MMOL/L (98-107); CREATININE FOR GFR 1.07 MG/DL (0.70-1.30); GLOMERULAR FILTRATION RATE > 60.0 (>42); GLUCOSE, FASTING 82 MG/DL (74-106); POTASSIUM SERUM 3.6 MMOL/L (3.5-5.1); SODIUM LEVEL 138 MMOL/L (136-145)
[2024-03-16 21:45] VITALS: BP 160/98; TEMP 97.7; O2SAT 95
[2024-03-16] MEDS: CYCLOBENZAPRINE 5MG TABLET PO PRN (23:01)
[2024-03-17 04:00] VITALS: BP 130/82; TEMP 98.2; O2SAT 95
[2024-03-17 04:43] VITALS: O2SAT 95
[2024-03-17 06:21] LABS: BASO # 0.1 10^3/uL (0.0-0.2); BASO % 0.9 % (0.0-1.0); EOS # 0.3 10^3/uL (0.0-0.5); EOS % 3.8 % (0.0-3.0); HEMATOCRIT 31.7 % (42.0-52.0); HEMOGLOBIN 10.8 g/dl (13.5-17.5); LYMPH # 1.8 10^3/uL (1.5-5.0); MEAN CORPUSCULAR HEMOGLOBIN 31.9 pg (27.0-33.0); MEAN CORPUSCULAR HGB CONC 34.1 g/dl (32.0-36.5); MEAN CORPUSCULAR VOLUME 93.5 fl (80.0-96.0); MONO # 0.7 10^3/uL (0.0-0.8); MONO % 10.4 % (2.0-8.0); NEUTROPHILS # 3.7 10^3/uL (1.5-8.5); NEUTROPHILS % 56.5 % (36.0-66.0); PLATELET COUNT, AUTOMATED 232 10^3/uL (150-450); RED BLOOD COUNT 3.39 10^6/uL (4.30-6.10); WHITE BLOOD COUNT 6.6 10^3/uL (4.0-10.0)
[2024-03-17 06:49] LABS: BLOOD UREA NITROGEN 10 MG/DL (9-23); CALCIUM LEVEL 8.7 MG/DL (8.3-10.6); CARBON DIOXIDE LEVEL 27 MMOL/L (20-31); CHLORIDE LEVEL 110 MMOL/L (98-107); CREATININE FOR GFR 0.94 MG/DL (0.70-1.30); GLOMERULAR FILTRATION RATE > 60.0 (>42); GLUCOSE, FASTING 82 MG/DL (74-106); POTASSIUM SERUM 4.1 MMOL/L (3.5-5.1); SODIUM LEVEL 142 MMOL/L (136-145)
[2024-03-17] MEDS: POTASSIUM CHLORIDE 10MEQ SR TABLET PO SCH (08:20)
[2024-03-17 10:17] LABS: CLOSTRIDIUM DIFFICILE PCR NEGATIVE (NEGATIVE)
[2024-03-17 12:00] VITALS: BP 118/84; TEMP 98.1; O2SAT 98
[2024-03-17 21:49] VITALS: BP 121/74; TEMP 97.4; O2SAT 97
[2024-03-18 03:00] VITALS: O2SAT 95
[2024-03-18 04:00] VITALS: BP 120/75; TEMP 97.7; O2SAT 96
[2024-03-18 06:09] LABS: BASO % 0.6 % (0.0-1.0); EOS # 0.3 10^3/uL (0.0-0.5); HEMATOCRIT 30.9 % (42.0-52.0); HEMOGLOBIN 10.6 g/dl (13.5-17.5); LYMPH # 1.2 10^3/uL (1.5-5.0); LYMPH % 19.9 % (24.0-44.0); MEAN CORPUSCULAR HEMOGLOBIN 32.1 pg (27.0-33.0); MEAN CORPUSCULAR HGB CONC 34.3 g/dl (32.0-36.5); MEAN CORPUSCULAR VOLUME 93.6 fl (80.0-96.0); MONO # 0.6 10^3/uL (0.0-0.8); MONO % 10.3 % (2.0-8.0); NEUTROPHILS % 64.1 % (36.0-66.0); PLATELET COUNT, AUTOMATED 223 10^3/uL (150-450); WHITE BLOOD COUNT 6.2 10^3/uL (4.0-10.0)
[2024-03-18 06:50] LABS: BLOOD UREA NITROGEN 12 MG/DL (9-23); CALCIUM LEVEL 8.4 MG/DL (8.3-10.6); CARBON DIOXIDE LEVEL 29 MMOL/L (20-31); CHLORIDE LEVEL 107 MMOL/L (98-107); CREATININE FOR GFR 1.08 MG/DL (0.70-1.30); GLOMERULAR FILTRATION RATE > 60.0 (>42); GLUCOSE, FASTING 84 MG/DL (74-106); POTASSIUM SERUM 3.8 MMOL/L (3.5-5.1); SODIUM LEVEL 139 MMOL/L (136-145)
[2024-03-18] MEDS: VITAMIN D 50,000 UNITS CAPSULE (ERGOCALCIFEROL 1.25MG) PO SCH (08:43)
[2024-03-18 12:00] VITALS: BP 96/61; TEMP 97.2; O2SAT 97
[2024-03-18 20:00] VITALS: BP 120/90; TEMP 98.2; O2SAT 98
[2024-03-19 04:00] VITALS: BP 120/79; TEMP 98.3; O2SAT 97
[2024-03-19 06:27] LABS: BASO % 0.5 % (0.0-1.0); EOS # 0.3 10^3/uL (0.0-0.5); EOS % 4.1 % (0.0-3.0); HEMATOCRIT 32.2 % (42.0-52.0); HEMOGLOBIN 10.8 g/dl (13.5-17.5); LYMPH # 1.3 10^3/uL (1.5-5.0); LYMPH % 16.2 % (24.0-44.0); MEAN CORPUSCULAR HEMOGLOBIN 31.8 pg (27.0-33.0); MEAN CORPUSCULAR HGB CONC 33.5 g/dl (32.0-36.5); MEAN CORPUSCULAR VOLUME 94.7 fl (80.0-96.0); MONO # 0.9 10^3/uL (0.0-0.8); MONO % 11.5 % (2.0-8.0); NEUTROPHILS # 5.4 10^3/uL (1.5-8.5); PLATELET COUNT, AUTOMATED 226 10^3/uL (150-450)
[2024-03-19 06:43] LABS: BLOOD UREA NITROGEN 16 MG/DL (9-23); CALCIUM LEVEL 8.8 MG/DL (8.3-10.6); CARBON DIOXIDE LEVEL 28 MMOL/L (20-31); CHLORIDE LEVEL 105 MMOL/L (98-107); CREATININE FOR GFR 1.17 MG/DL (0.70-1.30); GLOMERULAR FILTRATION RATE > 60.0 (>42); GLUCOSE, FASTING 89 MG/DL (74-106); POTASSIUM SERUM 3.5 MMOL/L (3.5-5.1); SODIUM LEVEL 139 MMOL/L (136-145)
[2024-03-19 12:00] VITALS: BP 106/98; TEMP 98.2; O2SAT 95
[2024-03-19 22:23] VITALS: BP 120/77; TEMP 98.1; O2SAT 96
[2024-03-20 01:54] VITALS: O2SAT 95
[2024-03-20 04:37] VITALS: BP 137/81; TEMP 98.1; O2SAT 94
[2024-03-20 09:00] VITALS: O2SAT 95
[2024-03-20 12:00] VITALS: BP 135/80; TEMP 98.6; O2SAT 95
[2024-03-20] MEDS: ONDANSETRON 4MG 2ML VIAL IV PRN (15:25)
[2024-03-20] MEDS ORDERED: ONDANSETRON 4MG TAB PO PRN (15:50)
[2024-03-20 20:30] VITALS: BP 148/94; TEMP 99; O2SAT 96
[2024-03-21 00:46] VITALS: O2SAT 97
[2024-03-21 03:44] VITALS: BP 120/70; TEMP 98.2; O2SAT 96
[2024-03-21 12:00] VITALS: BP 133/92; TEMP 97.5; O2SAT 98
[2024-03-21] MEDS ORDERED: FLOM0.4C39 PO (16:55)
[2024-03-21] MEDS ORDERED: FINA5TAB2 PO (16:55)
[2024-03-21] MEDS ORDERED: OXYC1TAB23 PO (16:55)
[2024-03-21] MEDS ORDERED: COLA100C5 PO (16:55)
== END 2024-03-21 18:40 | disposition home or self-care (01) | DRG 513 ==
LOC: M ED 15:02 → M ED INP 22:33 → M ICU 03-13 01:35 → M MSPAV 03-14 16:51
PROVIDERS: ADMIT Family Medicine; ATTEND Internal Medicine
PROC: 0PSP34Z Reposition Right Metacarpal with Internal Fixation Device, Percutaneous Approach (ICD-10-PCS; principal; 2024-03-13 18:00)
DX: S62.300A Unspecified fracture of second metacarpal bone, right hand, initial encounter for closed fracture (principal); J18.9 Pneumonia, unspecified organism; N39.0 Urinary tract infection, site not specified; N13.30 Unspecified hydronephrosis; E87.20 Acidosis, unspecified; Z20.822 Contact with and (suspected) exposure to COVID-19; S01.91XA Laceration without foreign body of unspecified part of head, initial encounter; W19.XXXA Unspecified fall, initial encounter; Y92.9 Unspecified place or not applicable; Y93.9 Activity, unspecified; M54.9 Dorsalgia, unspecified; G89.29 Other chronic pain; E83.42 Hypomagnesemia; E87.6 Hypokalemia; F10.20 Alcohol dependence, uncomplicated; G62.1 Alcoholic polyneuropathy; I10 Essential (primary) hypertension; M47.26 Other spondylosis with radiculopathy, lumbar region; M47.22 Other spondylosis with radiculopathy, cervical region; K59.00 Constipation, unspecified; K21.9 Gastro-esophageal reflux disease without esophagitis; Z85.828 Personal history of other malignant neoplasm of skin; Z98.41 Cataract extraction status, right eye; Z98.42 Cataract extraction status, left eye

== ENCOUNTER → 2024-04-04 | Outpatient (CLI) | payer MEDICARE ==
[~2024-04-04] MED LIST changes: +B-121TAB3 PO; +COLA100C5 PO; +FINA5TAB2 PO; +FLOM0.4C39 PO; +KETO2CR EXT; +KETO2SHA8 TOP; +OXYC1TAB23 PO; +PANT40TA29 PO; +POTA-298 PO; +SUCR1SS PO
== END ==
LOC: M SOG 08:00
PROVIDERS: ATTEND Orthopaedic Surgery
DX: Z53.9 Procedure and treatment not carried out, unspecified reason (principal)

== ENCOUNTER → 2024-04-11 | Outpatient (CLI) | payer MEDICARE ==
[~2024-04-11] MED LIST changes: +DOCU100C16 PO; +PANT20TA6 PO
== END ==
LOC: M SOG 07:58
PROVIDERS: ATTEND Orthopaedic Surgery
DX: Z53.9 Procedure and treatment not carried out, unspecified reason (principal)

== ENCOUNTER 2024-04-22 19:58 | Inpatient (IN) | payer MEDICARE ==
[~2024-04-22] VITALS: Ht 170.2 cm; Wt 63.4 kg
[~2024-04-22 19:58] MED LIST changes: -DOCU100C16 PO; -PANT20TA6 PO
[2024-04-22 20:35] LABS: BASO # 0.1 10^3/uL (0.0-0.2); BASO % 0.3 % (0.0-1.0); HEMATOCRIT 40.7 % (42.0-52.0); HEMOGLOBIN 13.5 g/dl (13.5-17.5); LYMPH # 1.1 10^3/uL (1.5-5.0); MEAN CORPUSCULAR HGB CONC 33.2 g/dl (32.0-36.5); MEAN CORPUSCULAR VOLUME 93.6 fl (80.0-96.0); MONO % 7.2 % (2.0-8.0); NEUTROPHILS # 24.9 10^3/uL (1.5-8.5); NEUTROPHILS % 87.8 % (36.0-66.0); PLATELET COUNT, AUTOMATED 437 10^3/uL (150-450); RED BLOOD COUNT 4.35 10^6/uL (4.30-6.10); WHITE BLOOD COUNT 28.3 10^3/uL (4.0-10.0)
[2024-04-22] MEDS: NS 1,000 ML IV ONE (20:42)
[2024-04-22 21:04] LABS: CK-MB VALUE MASS < 1.0 NG/ML (<3.6); ETHYL ALCOHOL (ETHANOL) < 0.003 % (0.000-0.010)
[2024-04-22 21:05] LABS: CPK CREATINE PHOSPHOKINASE 26 U/L (46-171); MB/CK RELATIVE INDEX 3.84 (< OR =4); SALICYLATE LEVEL < 3.0 MG/DL (<30)
[2024-04-22 21:11] LABS: VENOUS BASE EXCESS -16.9 (-2.0-2.0); VENOUS O2 SATURATION 52.3 % (60.0-80.0); VENOUS PARTIAL PRESSURE CO2 32.9 mmHg (38.0-50.0); VENOUS PARTIAL PRESSURE O2 37.6 mmHg (30.0-50.0); VENOUS PH 7.141 UNITS (7.330-7.430); VENOUS STANDARD HCO3 11.2 MMOL/L
[2024-04-22 21:12] LABS: ALBUMIN 2.9 G/DL (3.2-5.2); ALKALINE PHOSPHATASE 98 U/L (46-116); ALT/SGPT 29 U/L (7.0-40); AST/SGOT 38 U/L (<34); BILIRUBIN,DIRECT 0.7 MG/DL (<0.4); BILIRUBIN,TOTAL 1.1 MG/DL (0.3-1.2); BLOOD UREA NITROGEN 49 MG/DL (9-23); CARBON DIOXIDE LEVEL 13 MMOL/L (20-31); CHLORIDE LEVEL 108 MMOL/L (98-107); CREATININE FOR GFR 1.28 MG/DL (0.70-1.30); GLOMERULAR FILTRATION RATE 58.6 (>42); GLUCOSE, FASTING 152 MG/DL (74-106); SODIUM LEVEL 138 MMOL/L (136-145); TOTAL PROTEIN 6.9 G/DL (5.7-8.2)
[2024-04-22 21:13] LABS: OSMOLALITY SERUM 314 MOSM/KG (280-301)
[2024-04-22 21:47] LABS: AMPHETAMINES LEVEL URINE NEGATIVE (NEGATIVE)
[2024-04-22 21:48] LABS: BARBITURATES URINE NEGATIVE (NEGATIVE); BENZODIAZEPINES URINE NEGATIVE (NEGATIVE); CANNABINOIDS URINE NEGATIVE (NEGATIVE); COCAINE METABOLITE URINE NEGATIVE (NEGATIVE); METHADONE URINE NEGATIVE (NEGATIVE); OPIATES URINE NEGATIVE (NEGATIVE); PHENCYCLIDINE URINE NEGATIVE (NEGATIVE)
[2024-04-22] MEDS: PIPERACILLIN/TAZOBACTAM SOD 4.5 GM in D5W MINI-BAG PLUS 50 ML IV ONE (22:34)
[2024-04-22 23:03] LABS: CK-MB VALUE MASS < 1.0 NG/ML (<3.6)
[2024-04-22 23:10] LABS: CPK CREATINE PHOSPHOKINASE 52 U/L (46-171); MB/CK RELATIVE INDEX 1.92 (< OR =4)
[2024-04-23] VITALS (7 sets, daily range): BP systolic 100; BP diastolic 62; TEMP 97.2–97.3; O2SAT 96–98
[2024-04-23] MEDS ORDERED: NS 1,000 ML IV SCH (00:35)
[2024-04-23] MEDS ORDERED: LORazepam 2 MG TAB PO PRN (01:00)
[2024-04-23] MEDS: NS 1,000 ML IV ONE (01:14)
[2024-04-23] MEDS: VANCOMYCIN HCL 750 MG, VIAL MATE ADAPTER 1 EACH in D5W 250 ML IV ONE (01:15)
[2024-04-23] MEDS ORDERED: MED REC CURRENTLY UNOBTAINABLE XX SCH (01:55)
[2024-04-23 02:14] LABS: INR 1.37; PARTIAL THROMBOPLASTIN TIME 39.4 SECONDS (24.8-34.2); PROTHROMBIN TIME 16.4 SECONDS (12.5-14.5)
[2024-04-23 02:32] LABS: PROLACTIN 9.15 NG/ML (2.1-17.7)
[2024-04-23] MEDS: VANCOMYCIN HCL 500 MG in D5W MINI-BAG PLUS 100 ML IV ONE (02:34)
[2024-04-23] MEDS: SODIUM BICARBONATE 150 MEQ in D5W 1,000 ML IV SCH (04:00)
[2024-04-23 04:06] LABS: MAGNESIUM LEVEL 1.7 MG/DL (1.8-2.4)
[2024-04-23] MEDS: PIPERACILLIN/TAZOBACTAM SOD 4.5 GM in D5W MINI-BAG PLUS 50 ML IV SCH (05:07)
[2024-04-23] MEDS: MAG SULF 1GM/100ML (MAG RUN) 1 GM in IV 1 EA IV ONE (06:20)
[2024-04-23 07:15] LABS: VENOUS BASE EXCESS -4.6 (-2.0-2.0); VENOUS HCO3 18.5 MMOL/L (23.0-27.0); VENOUS O2 SATURATION 98.9 % (60.0-80.0); VENOUS PARTIAL PRESSURE CO2 28.7 mmHg (38.0-50.0); VENOUS PARTIAL PRESSURE O2 175.2 mmHg (30.0-50.0); VENOUS PH 7.428 UNITS (7.330-7.430); VENOUS STANDARD HCO3 20.7 MMOL/L; VENOUS TOTAL CO2 19.4 MMOL/L (24.0-28.0)
[2024-04-23 08:18] LABS: HEMATOCRIT 34.5 % (42.0-52.0); HEMOGLOBIN 11.6 g/dl (13.5-17.5); MEAN CORPUSCULAR HEMOGLOBIN 31.3 pg (27.0-33.0); MEAN CORPUSCULAR HGB CONC 33.6 g/dl (32.0-36.5); RED BLOOD COUNT 3.71 10^6/uL (4.30-6.10); WHITE BLOOD COUNT 20.3 10^3/uL (4.0-10.0)
[2024-04-23 08:25] LABS: PLATELET COUNT, AUTOMATED 308 10^3/uL (150-450)
[2024-04-23 08:31] LABS: ALBUMIN 2.4 G/DL (3.2-5.2); ALKALINE PHOSPHATASE 77 U/L (46-116); ALT/SGPT 30 U/L (7.0-40); AST/SGOT 53 U/L (<34); BILIRUBIN,TOTAL 0.8 MG/DL (0.3-1.2); BLOOD UREA NITROGEN 38 MG/DL (9-23); CALCIUM LEVEL 8.8 MG/DL (8.3-10.6); CARBON DIOXIDE LEVEL 21 MMOL/L (20-31); CHLORIDE LEVEL 112 MMOL/L (98-107); CREATININE FOR GFR 1.06 MG/DL (0.70-1.30); GLOMERULAR FILTRATION RATE > 60.0 (>42); GLUCOSE, FASTING 163 MG/DL (74-106); POTASSIUM SERUM 3.4 MMOL/L (3.5-5.1); SODIUM LEVEL 141 MMOL/L (136-145); TOTAL PROTEIN 5.8 G/DL (5.7-8.2)
[2024-04-23] MEDS: LACTULOSE 20GM/30ML SYRUP UDC PO SCH (08:47)
[2024-04-23] MEDS: NS 1,000 ML IV SCH (09:58)
[2024-04-23] MEDS: PANTOPRAZOLE 40MG VIAL IV SCH (10:00)
[2024-04-23] MEDS ORDERED: PANT20TA6 PO (10:47)
[2024-04-23] MEDS ORDERED: PREVAGEN PO (10:50)
[2024-04-23] MEDS ORDERED: FINA5TAB2 PO (10:57)
[2024-04-23] MEDS ORDERED: FLOM0.4C39 PO (10:57)
[2024-04-23] MEDS ORDERED: DOCU100C16 PO (10:57)
[2024-04-23] MEDS ORDERED: PIPERACILLIN/TAZOBACTAM SOD 3.375 GM in D5W MINI-BAG PLUS 50 ML IV SCH (11:00)
[2024-04-23] MEDS ORDERED: HOME MED LIST COMPLETE! XX SCH (11:00)
[2024-04-23] MEDS: PIPERACILLIN/TAZOBACTAM SOD 3.375 GM in D5W MINI-BAG PLUS 50 ML IV SCH (11:33)
[2024-04-23] MEDS: KCL 10MEQ/100ML SWI (KRUN) 10 MEQ in IV 1 EA IV SCH (11:56)
[2024-04-23] MEDS ORDERED: FEXOFENADINE 60MG TAB PO PRN (13:15)
[2024-04-23] MEDS: MULTIVITAMIN -ADULT INJECTION 10 ML, THIAMINE INJection 100 MG, FOLIC ACID 1 MG in NS 1... IV ONE (16:18)
[2024-04-23] MEDS: VANCOMYCIN HCL 750 MG, VIAL MATE ADAPTER 1 EACH in D5W 250 ML IV SCH (18:01)
[2024-04-23] MEDS: SUCRALFATE SUSP 1GM/10ML UD PO SCH (18:07)
[2024-04-23] MEDS: HEPARIN SOD (PORCINE) 5000UNITS/ML 1ML VIAL/SYRINGE SC SCH (18:08)
[2024-04-23] MEDS: THIAMINE INJection 500 MG in NS 100 ML IV SCH (18:11)
[2024-04-23] MEDS ORDERED: VANCOMYCIN HCL 1,000 MG, VIAL MATE ADAPTER 1 EACH in NS 250 ML IV SCH (20:00)
[2024-04-23] MEDS: TAMSULOSIN 0.4 MG CAP PO SCH (20:26)
[2024-04-24] VITALS (11 sets, daily range): BP systolic 96–125; BP diastolic 61–79; TEMP 97–97.4; O2SAT 96–98
[2024-04-24 06:29] LABS: HEMATOCRIT 29.3 % (42.0-52.0); HEMOGLOBIN 9.7 g/dl (13.5-17.5); MEAN CORPUSCULAR HEMOGLOBIN 30.7 pg (27.0-33.0); MEAN CORPUSCULAR HGB CONC 33.1 g/dl (32.0-36.5); MEAN CORPUSCULAR VOLUME 92.7 fl (80.0-96.0); PLATELET COUNT, AUTOMATED 230 10^3/uL (150-450); RED BLOOD COUNT 3.16 10^6/uL (4.30-6.10); WHITE BLOOD COUNT 7.7 10^3/uL (4.0-10.0)
[2024-04-24 06:59] LABS: ALBUMIN 2.1 G/DL (3.2-5.2); ALKALINE PHOSPHATASE 60 U/L (46-116); ALT/SGPT 47 U/L (7.0-40); AST/SGOT 84 U/L (<34); BILIRUBIN,TOTAL 0.5 MG/DL (0.3-1.2); BLOOD UREA NITROGEN 18 MG/DL (9-23); CALCIUM LEVEL 7.4 MG/DL (8.3-10.6); CARBON DIOXIDE LEVEL 21 MMOL/L (20-31); CHLORIDE LEVEL 112 MMOL/L (98-107); CREATININE FOR GFR 0.92 MG/DL (0.70-1.30); GLOMERULAR FILTRATION RATE > 60.0 (>42); GLUCOSE, FASTING 90 MG/DL (74-106); MAGNESIUM LEVEL 1.5 MG/DL (1.8-2.4); POTASSIUM SERUM 3.3 MMOL/L (3.5-5.1); SODIUM LEVEL 139 MMOL/L (136-145); TOTAL PROTEIN 4.8 G/DL (5.7-8.2)
[2024-04-24] MEDS: FOLIC ACID 1MG TAB PO SCH (08:20)
[2024-04-24] MEDS: FINASTERIDE 5MG TAB PO SCH (08:21)
[2024-04-24] MEDS: ASPIRIN 81MG ENTERIC TABLET PO SCH (08:21)
[2024-04-24] MEDS: MAG SULF 1GM/100ML (MAG RUN) 1 GM in IV 1 EA IV SCH (10:29)
[2024-04-24] MEDS: POTASSIUM CHLORIDE 10MEQ SR TABLET PO SCH (10:29)
[2024-04-24] MEDS: FLUBLOK(EGGFREE) TRIVAL(24-25) VACCINE PF 0.5ML SYRINGE 18YRS & OLDER IM.IMMUN ONE (12:00)
[2024-04-24] MEDS: PREVNAR-20 VACCINE 0.5ML SYRINGE IM.IMMUN ONE (12:01)
[2024-04-24 13:30] LABS: PROCALCITONIN 0.31 ng/ml
[2024-04-24 14:11] LABS: ERYTHROCYTE SEDIMENTATION RATE 32 mm/hr (0-20)
[2024-04-24] MEDS ORDERED: MIRALAX *UNIT DOSE* 17GM PACKET PO PRN (14:15)
[2024-04-24] MEDS ORDERED: SENOKOT S TAB PO PRN (14:15)
[2024-04-24] MEDS: CEPHALEXIN 500 MG CAP PO SCH (14:59)
[2024-04-24] MEDS: MIRALAX *UNIT DOSE* 17GM PACKET PO ONE (15:00)
[2024-04-24] MEDS: SENOKOT S TAB PO ONE (15:00)
[2024-04-25 04:00] VITALS: BP 127/77; TEMP 98.1; O2SAT 98
[2024-04-25] MEDS: MAGNESIUM OXIDE 400MG TAB (MAG-OX) PO SCH (10:18)
[2024-04-25 12:00] VITALS: BP 127/79; TEMP 98.1; O2SAT 97
[2024-04-25] MEDS ORDERED: oxyBUTYnin 5 MG TAB PO PRN (16:05)
[2024-04-25 20:56] VITALS: BP 128/82; TEMP 97.9; O2SAT 96
[2024-04-25 22:00] VITALS: BP 128/82
[2024-04-26 01:00] VITALS: O2SAT 96
[2024-04-26 03:54] VITALS: BP 128/83; TEMP 98.1; O2SAT 94
[2024-04-26 06:50] VITALS: BP 141/86; TEMP 97.9; O2SAT 95
[2024-04-26 10:04] LABS: CLOSTRIDIUM DIFFICILE PCR NEGATIVE (NEGATIVE)
[2024-04-26 12:00] VITALS: BP 115/81; TEMP 97.9; O2SAT 98
[2024-04-26 17:05] LABS: BASO # 0.1 10^3/uL (0.0-0.2); BASO % 1.3 % (0.0-1.0); EOS # 0.3 10^3/uL (0.0-0.5); EOS % 4.8 % (0.0-3.0); HEMATOCRIT 30.4 % (42.0-52.0); HEMOGLOBIN 9.9 g/dl (13.5-17.5); LYMPH # 1.2 10^3/uL (1.5-5.0); MEAN CORPUSCULAR HEMOGLOBIN 30.8 pg (27.0-33.0); MEAN CORPUSCULAR HGB CONC 32.6 g/dl (32.0-36.5); MEAN CORPUSCULAR VOLUME 94.7 fl (80.0-96.0); MONO # 0.6 10^3/uL (0.0-0.8); MONO % 9.4 % (2.0-8.0); NEUTROPHILS # 4.1 10^3/uL (1.5-8.5); PLATELET COUNT, AUTOMATED 277 10^3/uL (150-450); RED BLOOD COUNT 3.21 10^6/uL (4.30-6.10); WHITE BLOOD COUNT 6.3 10^3/uL (4.0-10.0)
[2024-04-26 17:34] LABS: ALBUMIN 2.1 G/DL (3.2-5.2); BILIRUBIN,DIRECT 0.1 MG/DL (<0.4); BILIRUBIN,TOTAL 0.3 MG/DL (0.3-1.2)
[2024-04-26 17:47] LABS: BLOOD UREA NITROGEN 10 MG/DL (9-23); CALCIUM LEVEL 8.2 MG/DL (8.3-10.6); CARBON DIOXIDE LEVEL 22 MMOL/L (20-31); CHLORIDE LEVEL 114 MMOL/L (98-107); CREATININE FOR GFR 0.89 MG/DL (0.70-1.30); GLOMERULAR FILTRATION RATE > 60.0 (>42); GLUCOSE, FASTING 91 MG/DL (74-106); MAGNESIUM LEVEL 1.3 MG/DL (1.8-2.4); POTASSIUM SERUM 5.1 MMOL/L (3.5-5.1); SODIUM LEVEL 140 MMOL/L (136-145)
[2024-04-26] MEDS: THIAMINE 100 MG TAB PO SCH (21:51)
[2024-04-27 04:21] VITALS: BP 115/80; TEMP 98.1; O2SAT 96
[2024-04-27 04:55] VITALS: O2SAT 95
[2024-04-27 18:54] VITALS: O2SAT 95
[2024-04-28 03:50] VITALS: BP 113/80; TEMP 98.1; O2SAT 94
[2024-04-28 14:04] LABS: BASO # 0.1 10^3/uL (0.0-0.2); EOS # 0.4 10^3/uL (0.0-0.5); HEMATOCRIT 31.6 % (42.0-52.0); HEMOGLOBIN 10.4 g/dl (13.5-17.5); LYMPH # 1.4 10^3/uL (1.5-5.0); LYMPH % 19.8 % (24.0-44.0); MEAN CORPUSCULAR HGB CONC 32.9 g/dl (32.0-36.5); MEAN CORPUSCULAR VOLUME 94.3 fl (80.0-96.0); MONO # 0.7 10^3/uL (0.0-0.8); MONO % 10.1 % (2.0-8.0); NEUTROPHILS # 4.6 10^3/uL (1.5-8.5); NEUTROPHILS % 63.5 % (36.0-66.0); PLATELET COUNT, AUTOMATED 278 10^3/uL (150-450); RED BLOOD COUNT 3.35 10^6/uL (4.30-6.10); WHITE BLOOD COUNT 7.2 10^3/uL (4.0-10.0)
[2024-04-28 14:08] LABS: ERYTHROCYTE SEDIMENTATION RATE 28 mm/hr (0-20)
[2024-04-28 14:35] LABS: PROCALCITONIN 0.11 ng/ml
[2024-04-28 14:42] LABS: BLOOD UREA NITROGEN 16 MG/DL (9-23); CALCIUM LEVEL 8.5 MG/DL (8.3-10.6); CARBON DIOXIDE LEVEL 26 MMOL/L (20-31); CHLORIDE LEVEL 110 MMOL/L (98-107); CREATININE FOR GFR 1.05 MG/DL (0.70-1.30); GLOMERULAR FILTRATION RATE > 60.0 (>42); GLUCOSE, FASTING 130 MG/DL (74-106); POTASSIUM SERUM 4.1 MMOL/L (3.5-5.1); SODIUM LEVEL 139 MMOL/L (136-145)
[2024-04-28] MEDS ORDERED: VANCOMYCIN HCL 1,000 MG, VIAL MATE ADAPTER 1 EACH in D5W 250 ML IV SCH (17:20)
[2024-04-28] MEDS: VANCOMYCIN HCL 750 MG, VIAL MATE ADAPTER 1 EACH in D5W 250 ML IV ONE (18:03)
[2024-04-28] MEDS: VANCOMYCIN HCL 500 MG in D5W MINI-BAG PLUS 100 ML IV ONE (19:11)
[2024-04-28 21:00] VITALS: O2SAT 92
[2024-04-28 21:24] VITALS: O2SAT 94
[2024-04-29] MEDS: VANCOMYCIN HCL 750 MG, VIAL MATE ADAPTER 1 EACH in D5W 250 ML IV SCH ×2 (01:57→14:28)
[2024-04-29 04:30] VITALS: BP 93/60; TEMP 97.9; O2SAT 90
[2024-04-29] MEDS: MIDODRINE 5 MG TAB PO ONE (08:30)
[2024-04-29] MEDS: NS 500 ML IV ONE (08:30)
[2024-04-29 10:33] LABS: BLOOD UREA NITROGEN 15 MG/DL (9-23); CALCIUM LEVEL 8.3 MG/DL (8.3-10.6); CARBON DIOXIDE LEVEL 28 MMOL/L (20-31); CHLORIDE LEVEL 107 MMOL/L (98-107); CREATININE FOR GFR 1.06 MG/DL (0.70-1.30); GLOMERULAR FILTRATION RATE > 60.0 (>42); GLUCOSE, FASTING 100 MG/DL (74-106); POTASSIUM SERUM 3.7 MMOL/L (3.5-5.1); SODIUM LEVEL 138 MMOL/L (136-145)
[2024-04-29 12:23] VITALS: BP 93/62; TEMP 97.9; O2SAT 95
[2024-04-29] MEDS: VANCOMYCIN HCL 500 MG in D5W MINI-BAG PLUS 100 ML IV SCH (15:44)
[2024-04-30 03:40] VITALS: BP 98/80; TEMP 97.9; O2SAT 96
[2024-05-01] MEDS: PERMETHRIN 5% CREAM 60 GM TOP ONE (02:15)
[2024-05-01 03:39] VITALS: BP 101/76; TEMP 97.9; O2SAT 95
[2024-05-02 04:00] VITALS: BP 92/68; TEMP 97.9; O2SAT 93
[2024-05-02] MEDS ORDERED: OXYB5TAB14 PO (14:24)
== END 2024-05-02 15:01 | disposition home or self-care (01) | DRG 641 ==
LOC: M ED 19:58 → M ED INP 23:49 → M PCU 04-23 18:47 → M MSPAV 04-24 22:20
PROVIDERS: ADMIT Family Medicine; ATTEND General Practice
PROC: 0PP Upper Bones, Removal (ICD-10-PCS; principal; 2024-04-28)
DX: E51.2 Wernicke's encephalopathy (principal); N39.0 Urinary tract infection, site not specified; E72.20 Disorder of urea cycle metabolism, unspecified; E87.20 Acidosis, unspecified; E46 Unspecified protein-calorie malnutrition; L97.921 Non-pressure chronic ulcer of unspecified part of left lower leg limited to breakdown of skin; F10.20 Alcohol dependence, uncomplicated; G62.1 Alcoholic polyneuropathy; K21.9 Gastro-esophageal reflux disease without esophagitis; I10 Essential (primary) hypertension; E87.6 Hypokalemia; R29.6 Repeated falls; N40.0 Benign prostatic hyperplasia without lower urinary tract symptoms; E53.8 Deficiency of other specified B group vitamins; Z85.828 Personal history of other malignant neoplasm of skin; H93.11 Tinnitus, right ear; N52.9 Male erectile dysfunction, unspecified; M54.59 Other low back pain; Z79.82 Long term (current) use of aspirin; Z79.899 Other long term (current) drug therapy; L98.411 Non-pressure chronic ulcer of buttock limited to breakdown of skin; Z98.41 Cataract extraction status, right eye; Z98.42 Cataract extraction status, left eye

== ENCOUNTER → 2024-06-01 | Outpatient (CLI) | payer MEDICARE ==
[~2024-06-01] MED LIST changes: +DOCU100C16 PO; +OXYB5TAB14 PO; +PANT20TA6 PO
== END ==
LOC: M SOG 08:01
PROVIDERS: ATTEND Physician Assistant
DX: S62.330A Displaced fracture of neck of second metacarpal bone, right hand, initial encounter for closed fracture (principal); Z53.9 Procedure and treatment not carried out, unspecified reason

== ENCOUNTER → 2024-06-04 | Outpatient (CLI) | payer MEDICARE | LOC: M SOG 08:56 | PROVIDERS: ATTEND Physician Assistant | DX: S62.330A Displaced fracture of neck of second metacarpal bone, right hand, initial encounter for closed fracture (principal); X58.XXXA Exposure to other specified factors, initial encounter; Y92.9 Unspecified place or not applicable; Z53.9 Procedure and treatment not carried out, unspecified reason ==

== ENCOUNTER → 2024-06-08 | Outpatient (CLI) | payer MEDICARE | LOC: M EKG 11:22 | PROVIDERS: ATTEND Internal Medicine Cardiovascular Disease | DX: I49.1 Atrial premature depolarization (principal); R00.8 Other abnormalities of heart beat; I49.3 Ventricular premature depolarization ==

== ENCOUNTER → 2024-06-20 | Outpatient (CLI) | payer MEDICARE | LOC: M SOG 07:58 | PROVIDERS: ATTEND Physician Assistant | DX: S62.330A Displaced fracture of neck of second metacarpal bone, right hand, initial encounter for closed fracture (principal); Z53.9 Procedure and treatment not carried out, unspecified reason ==

== ENCOUNTER → 2024-07-09 | Outpatient (CLI) | payer MEDICARE | LOC: M SOG 07:57 | PROVIDERS: ATTEND Physician Assistant | DX: S62.330A Displaced fracture of neck of second metacarpal bone, right hand, initial encounter for closed fracture (principal); Z53.9 Procedure and treatment not carried out, unspecified reason ==

== ENCOUNTER → 2024-07-20 | Outpatient (CLI) | payer MEDICARE | LOC: M SOG 07:50 | PROVIDERS: ATTEND Physician Assistant | DX: Z53.9 Procedure and treatment not carried out, unspecified reason (principal) ==

== ENCOUNTER → 2024-08-07 | Outpatient (REF) | payer MEDICARE | LOC: M SFHCCAPE 10:17 | PROVIDERS: ATTEND Physician Assistant Medical | DX: Z12.5 Encounter for screening for malignant neoplasm of prostate (principal) | CPT/HCPCS: 36415; G0103 ==

== ENCOUNTER → 2024-08-24 | Outpatient (CLI) | payer MEDICARE | LOC: M SOG 07:55 | PROVIDERS: ATTEND Physician Assistant | DX: Z53.9 Procedure and treatment not carried out, unspecified reason (principal) ==

== ENCOUNTER → 2024-08-30 | Outpatient (REF) | payer MEDICARE ==
[2024-08-30 17:27] LABS: BASO # 0.1 10^3/uL (0.0-0.2); BASO % 1.2 % (0.0-1.0); EOS # 0.1 10^3/uL (0.0-0.5); EOS % 1.5 % (0.0-3.0); HEMATOCRIT 42.9 % (42.0-52.0); HEMOGLOBIN 14.5 g/dl (13.5-17.5); LYMPH % 23.7 % (24.0-44.0); MEAN CORPUSCULAR HEMOGLOBIN 31.5 pg (27.0-33.0); MEAN CORPUSCULAR HGB CONC 33.8 g/dl (32.0-36.5); MEAN CORPUSCULAR VOLUME 93.1 fl (80.0-96.0); MONO # 0.9 10^3/uL (0.0-0.8); MONO % 10.2 % (2.0-8.0); NEUTROPHILS # 5.4 10^3/uL (1.5-8.5); NEUTROPHILS % 63.2 % (36.0-66.0); PLATELET COUNT, AUTOMATED 336 10^3/uL (150-450); RED BLOOD COUNT 4.61 10^6/uL (4.30-6.10); WHITE BLOOD COUNT 8.6 10^3/uL (4.0-10.0)
[2024-08-30 17:59] LABS: ALBUMIN 3.9 G/DL (3.2-5.2); ALKALINE PHOSPHATASE 84 U/L (40-129); ALT/SGPT < 9 U/L (7.0-40); AST/SGOT 16 U/L (<34); BILIRUBIN,TOTAL 0.8 MG/DL (0.3-1.2); BLOOD UREA NITROGEN 19 MG/DL (9-23); CALCIUM LEVEL 9.7 MG/DL (8.3-10.6); CARBON DIOXIDE LEVEL 23 MMOL/L (20-31); CHLORIDE LEVEL 103 MMOL/L (98-107); CHOLESTEROL LEVEL 154 MG/DL (<200); CHOLESTEROL RISK RATIO 2.92 (<5); CREATININE FOR GFR 1.15 MG/DL (0.70-1.30); GLOMERULAR FILTRATION RATE > 60.0 (>42); GLUCOSE, FASTING 128 MG/DL (74-106); HDL CHOLESTEROL 52.6 MG/DL (>40); LDL CHOLESTEROL 81.8 MG/DL (<100); MAGNESIUM LEVEL 1.5 MG/DL (1.8-2.4); NON-HDL-C 101.4 MG/DL; POTASSIUM SERUM 3.6 MMOL/L (3.5-5.1); SODIUM LEVEL 142 MMOL/L (136-145); TOTAL PROTEIN 7.9 G/DL (5.7-8.2); TRIGLYCERIDES LEVEL 98 MG/DL (<150)
== END ==
LOC: M SFHCCAPE 11:29
PROVIDERS: ATTEND Physician Assistant Medical
DX: G93.41 Metabolic encephalopathy (principal); E78.5 Hyperlipidemia, unspecified; G62.9 Polyneuropathy, unspecified; F10.90 Alcohol use, unspecified, uncomplicated; E83.42 Hypomagnesemia; E87.6 Hypokalemia

== ENCOUNTER → 2024-09-14 | Outpatient (CLI) | payer MEDICARE | LOC: M SOG 07:51 | PROVIDERS: ATTEND Physician Assistant | DX: S62.330A Displaced fracture of neck of second metacarpal bone, right hand, initial encounter for closed fracture (principal); Z53.8 Procedure and treatment not carried out for other reasons ==

== ENCOUNTER → 2024-09-17 | Outpatient (CLI) | payer MEDICARE | LOC: M SOG 07:54 | PROVIDERS: ATTEND Physician Assistant | DX: Z53.9 Procedure and treatment not carried out, unspecified reason (principal) ==

== ENCOUNTER → 2024-10-19 | Outpatient (CLI) | payer MEDICARE ==
[~2024-10-19] MED LIST changes: +CYAN-11 PO; +THERTAB52 PO; +VITA500045 PO; +[UNRECOGNIZED DRUG - OTHER] PO; +prevagen PO
== END ==
LOC: M SOG 07:51
PROVIDERS: ATTEND Orthopaedic Surgery
DX: Z53.9 Procedure and treatment not carried out, unspecified reason (principal)

== ENCOUNTER → 2024-10-22 | Outpatient (CLI) | payer MEDICARE | LOC: M SOG 07:51 | PROVIDERS: ATTEND Orthopaedic Surgery | DX: S62.330A Displaced fracture of neck of second metacarpal bone, right hand, initial encounter for closed fracture (principal); Z53.9 Procedure and treatment not carried out, unspecified reason ==

== ENCOUNTER → 2024-11-27 | Outpatient (REF) | payer MEDICARE | LOC: M SFHCCLAY 09:12 | PROVIDERS: ATTEND Family Medicine | DX: E83.42 Hypomagnesemia (principal) ==

== ENCOUNTER 2024-12-11 07:30 | Day surgery (SDC) | payer MEDICARE ==
[~2024-12-11] VITALS: Ht 182.9 cm; Wt 65.4 kg
[~2024-12-11 07:30] MED LIST changes: +AMLO-751 PO; -AMLO10TA PO; -FLOM0.4C39 PO; +KETO120S5 TOP; -KETO2SHA8 TOP; +TAMS-18 PO
[2024-12-11] MEDS ORDERED: LIDOCAINE 2% 100MG/5ML SDV (FOR ANES.) As Ordered ONE (08:16)
[2024-12-11] MEDS ORDERED: propofoL 200 MG/20 ML VIAL As Ordered ONE (08:16)
[2024-12-11] MEDS ORDERED: GLYCOPYRROLATE INJ 0.2 MG/ML 2 ML VIAL As Ordered ONE (08:16)
[2024-12-11] MEDS ORDERED: fentaNYL 100 MCG/2 ML INJECTION As Ordered ONE (08:31)
[2024-12-11] MEDS ORDERED: PHENYLephrine 500MCG 5ML (100MCG/ML) SYRINGE As Ordered ONE (08:51)
[2024-12-11 08:59] VITALS: TEMP 98
[2024-12-11 09:25] VITALS: BP 107/75; O2SAT 96
== END 2024-12-11 09:26 | disposition home or self-care (01) ==
LOC: M OPP 07:30
PROVIDERS: ATTEND Internal Medicine Gastroenterology
DX: K92.89 Other specified diseases of the digestive system (principal); K21.00 Gastro-esophageal reflux disease with esophagitis, without bleeding; K44.9 Diaphragmatic hernia without obstruction or gangrene; K22.2 Esophageal obstruction; I10 Essential (primary) hypertension; Z79.82 Long term (current) use of aspirin; Z79.899 Other long term (current) drug therapy
CPT/HCPCS: 43239; 43249; 88305; J1596; J2371; J3010

== ENCOUNTER → 2024-12-18 | Outpatient (CLI) | payer MEDICARE | LOC: M CARPUL 14:29 | PROVIDERS: ATTEND Internal Medicine Pulmonary Disease | DX: R91.8 Other nonspecific abnormal finding of lung field (principal) ==